=== PATIENT | female | born 1955 | race Caucasian/White ===

== ENCOUNTER 2025-01-13 18:08 | Observation (INO) | payer MEDICARE ==
[2025-01-13 19:39] LABS: BASOPHIL % 0.9 % (0.1-1.2); Basophil (Absolute #) 0.07 x10^3/uL (0.01-0.08); Eosinophil (Absolute #) 0.21 x10^3/uL (0.04-0.36); Hematocrit 18.2 % (34.1-44.9); IMMATURE GRAN # 0.02 x10^3u/L (0.001-0.031); IMMATURE GRAN % 0.3 % (0.001-0.429); Lymphocyte (Absolute #) 1.46 x10^3/uL (1.18-3.74); Mean Corpuscular Hemoglobin 23.5 pg (25.6-32.2); Mean Corpuscular Hgb Concent. 28.6 g/dL (32.2-35.5); Monocyte (Absolute #) 0.72 x10^3/uL (0.24-0.86); NUCLEATED RBC # 0.04 x10^3u/L (0.00-0.012); NUCLEATED RBC % 0.5 % (0.00-0.2); Platelet Count 411 x10^3/uL (182-369); Red Blood Count 2.21 x10^6/uL (3.93-5.22); White Blood Count 7.7 x10^3/uL (3.98-10.04)
[2025-01-13 19:52] LABS: Hemoglobin 5.2 g/dL (11.2-15.7)
[2025-01-13 19:56] LABS: Calcium 9.1 mg/dL (8.4-10.2); Carbon Dioxide 25.0 mmol/L (22-30); Creatinine 1 1.66 mg/dL (0.52-1.04); EST GLOMERULAR FILTRATION RATE 33.4 ML/MIN; Glucose 105.0 mg/dL (74-106); Potassium 4.1 mmol/L (3.5-5.1); SGOT/AST 26.0 U/L (14-36); SGPT/ALT 26.0 U/L (0-35); Total Protein 6.5 g/dL (6.3-8.2)
--- NOTE | 2025-01-13 20:20 | ERPHSYRPT ---
- History of Present Illness Source: patient, rn plastic surgery Patient Subjective Stated Complaint: pt c/o of arm and leg achiness, feeling like she is going to pass out Triage Nursing Assessment: Pt brought to the ER by her father, vitals wnl, rates pain as 6/10, pulses normal, skin n/w/d, denies SOB, denies chest pain, doesn't appear to be in any distress Physician History: Patient is feeling fatigued. She said she feels like she is anemic. This has happened before. She had it worked up a while back in [place]. She said that "they did not find what was wrong". She said that she is just been getting progressively fatigued cannotDo what she used to do. There is been no acute blood loss that she is seen. She has had no chest pain. But she has had some shortness of breath.This is with exertion. She does not have any fever or chills or nausea vomiting or other systemic or toxic symptoms. Allergies/Adverse Reactions: No Known Drug Allergies Allergy (Verified 01/13/25 18:30) Home Medications: Amiodarone HCl 200 mg PO DAILY 01/13/25 [History] Amlodipine Besylate 5 mg [Norvasc 5 mg] 5 mg PO DAILY 01/13/25 [History] Furosemide 20 mg [Lasix 20 mg] 20 mg PO DAILY 01/13/25 [History] Metoprolol Tartrate 50 mg [Lopressor 50 MG] 50 mg PO BID 01/13/25 [History] PANTOPRAZOLE 40 mg Tablet [Protonix 40MG Tablet] 40 mg PO QAM 01/13/25 [History] Potassium Chloride 10 meq PO BID 01/13/25 [History] Rivaroxaban [Xarelto] 20 mg PO DAILY 01/13/25 [History] Sucralfate 1 gm [Carafate 1 GM] 1 g PO DAILY 01/13/25 [History] Hx Influenza Vaccination/Date Given: Yes Hx Pneumococcal Vaccination/Date Given: Yes Travel Risk - International Travel Have you traveled outside of the country in past 3 weeks: No - Emerging Infectious Disease Are you exhibiting symptoms associated with any current EIDs: No - Review of Systems Constitutional: Fatigue Eyes: No Symptoms Ears, Nose, & Throat: No Symptoms Respiratory: No Symptoms, Dyspnea on Exertion (BENNETT) Cardiac: No Symptoms Abdominal/Gastrointestinal: No Symptoms, No Hematemesis, No Hematochezia, No Melena, No Dysphagia Genitourinary Symptoms: No Symptoms Musculoskeletal: No Symptoms Skin: No Symptoms Neurological: No Symptoms Psychological: No Symptoms All Other Systems: Reviewed and Negative - Past Medical History Pertinent Past Medical History: Yes Cardiac History: Arrhythmia, High Cholesterol, Hypertension Other Medical History: hx of blood transfusion - Past Surgical History Past Surgical History: Yes Gastrointestinal: Cholecystectomy Female Surgical History: Section, Tubal Ligation - Social History Smoking Status: Never smoker Exposure to second hand smoke: No Drug Use: none - Social Determinants of Health Will the patient participate in the screening: Yes Do you worry about a steady place to live?: No Do you have any problems with any of the following?: No known problems In the past 12 months,have you had to go without utilities?: No Transportation Issues: No Has anyone in your support network made you feel unsafe?: No Have you or anyone in your house had to go w/o enough food: No - Nursing Vital Signs Nursing Vital Signs: Initial Vital Signs Temperature 97.2 F 01/13/25 18:22 Pulse Rate 65 01/13/25 18:22 Blood Pressure 123/28 01/13/25 18:22 O2 Sat by Pulse Oximetry 98 01/13/25 18:22 Pain Scale Pain Intensity 6 - Physical Exam General Appearance: no apparent distress, other (Pale) Eyes, Ears, Nose, Throat Exam: normal ENT inspection, No TMs normal, No pharynx normal Neck Exam: normal inspection, non-tender, supple Cardiovascular/Respiratory Exam: chest non-tender, normal breath sounds, regular rate/rhythm Gastrointestinal/Abdominal Exam: non-tender, soft Back Exam: normal inspection, normal range of motion Legs Exam: bilateral leg: non-tender, normal inspection, normal range of motion Knees Exam: bilateral knee: non-tender, normal inspection, normal range of motion Neuro/Tendon Exam: normal sensation, normal motor functions, normal tendon functions Mental Status Exam: alert, oriented x 3 Skin Exam: normal color, warm, dry SpO2: 97 - Course Nursing assessment & vital signs reviewed: Yes Ordered Tests: Active Orders 24 hr Category Date Time Status CBC W DIFF Stat Lab 01/13/25 19:30 Completed CMP Stat Lab 01/13/25 19:30 Completed MAG [MAGNESIUM] Stat Lab 01/13/25 19:30 Completed Lab/Rad Data: Laboratory Result Diagrams 01/13/25 19:30 01/13/25 19:30 Laboratory Results 01/13/25 01/13/25 Range/Units 19:30 19:30 WBC 7.7 (3.98-10.04) x10^3/uL RBC 2.21 L (3.93-5.22) x10^6/uL Hgb 5.2 L* (11.2-15.7) g/dL Hct 18.2 L (34.1-44.9) % MCV 82.4 (79.4-94.8) fL MCH 23.5 L (25.6-32.2) pg MCHC 28.6 L (32.2-35.5) g/dL RDW 16.8 H (11.7-14.4) % Plt Count 411 H (182-369) x10^3/uL MPV 9.9 (9.4-12.3) fL Gran % 67.9 (34.0-71.1) % Immature Gran % (Auto) 0.3 (0.001-0.429) % Nucleat RBC Rel Count 0.5 H (0.00-0.2) % Eos # (Auto) 0.21 (0.04-0.36) x10^3/uL Immature Gran # (Auto) 0.02 (0.001-0.031) x10^3u/L Absolute Lymphs (auto) 1.46 (1.18-3.74) x10^3/uL Absolute Monos (auto) 0.72 (0.24-0.86) x10^3/uL Absolute Nucleated RBC 0.04 H (0.00-0.012) x10^3u/L Lymphocytes % 18.9 L (19.3-51.7) % Monocytes % 9.3 (4.7-12.5) % Eosinophils % 2.7 (0.7-5.8) % Basophils % 0.9 (0.1-1.2) % Absolute Granulocytes 5.23 (1.56-6.13) x10^3/uL Basophils # 0.07 (0.01-0.08) x10^3/uL Sodium 136 (135-145) mmol/L Potassium 4.1 (3.5-5.1) mmol/L Chloride 103 (98-107) mmol/L Carbon Dioxide 25 (22-30) mmol/L Anion Gap 12.0 (5-15) MEQ/L BUN 19 H (7-17) mg/dL Creatinine 1.66 H (0.52-1.04) mg/dL Estimated GFR 33.4 ML/MIN Glucose 105 (74-106) mg/dL Calcium 9.1 (8.4-10.2) mg/dL Magnesium 2.1 (1.6-2.3) mg/dL Total Bilirubin 0.30 (0.2-1.3) mg/dL AST 26 (14-36) U/L ALT 26 (0-35) U/L Alkaline Phosphatase 57 (38-126) U/L Serum Total Protein 6.5 (6.3-8.2) g/dL Albumin 4.1 (3.5-5.0) g/dL - Progress Progress: unchanged Progress Note: Patient was stable throughout stay. Her vital signs were good she was just a little hypotensive. Her lab work came back it showed a normocytic hypochromic anemiaThere is a high RDW. I spoke with the hospitalist he said that they will workup the anemia I will go ahead and put her in and get a couple units of red cells ordered. 01/13/25 20:25 - Departure Departure Disposition: Observation Clinical Impression: Anemia Condition: Stable Critical Care Time: No Referrals: JAY BARTON MD [Primary Care Provider, [facility]] - Follow up/PCP as directed
[2025-01-13 20:42] LABS: RETICULOCYTE % 3.7 % (0.5-1.7); RETICULOCYTE HEMOGLOBIN 16.7 pg (28-36.6)
[2025-01-13] MEDS: TYLENOL 325 MG PO ONE (21:15)
[2025-01-13] MEDS: Klor Con PO SCH (21:15)
[2025-01-13 21:16] LABS: Iron 20 ug/dL (37-170); TIBC 484 ug/dL (265-462)
[2025-01-13] MEDS: Lopressor 50 MG PO SCH (21:16)
[2025-01-13] MEDS ORDERED: BENADRYL 25 MG CAPSULE ONE (21:38)
--- NOTE | 2025-01-13 22:01 | PCM.HP ---
History of Present Illness - Chief Complaint Chief Complaint: fatigue Date: 01/13/25 History of Present Illness: 69-year-old with a history of A-fib on Xarelto, hypertension, CHF unknown etiology, and GERD, who presents with fatigue. Patient notes that she has had progressive feelings of weakness for the past few weeks, progressing now to the point where she feels that she might even pass out after only walking a few steps. Denies any chest pain, dyspnea, nausea, abdominal pain. Denies any melena, hematochezia, hematemesis, or hematuria. Not on any particular dietary restrictions. She notes that a few years ago, she had similar symptoms and required a blood transfusion at that time. She never found a source of any bleeding, despite receiving an upper and lower endoscopy. Her last colonoscopy was a few years ago at that time. Most recently she has had a Cologuard in the last few months that was negative. She has been on Xarelto for some time with no issues. She has a history of severe GERD requiring PPI and Carafate, but denies any history of gastric ulcers or bleeding from the stomach. - Review of Systems All Other Systems: Reviewed and Negative (Except as per HPI) Medications & Allergies Home Medications: Home Medication List Amiodarone HCl 200 mg PO DAILY 01/13/25 [History Confirmed 01/13/25] Amlodipine Besylate 5 mg [Norvasc 5 mg] 5 mg PO DAILY 01/13/25 [History Confirmed 01/13/25] Furosemide 20 mg [Lasix 20 mg] 20 mg PO DAILY 01/13/25 [History Confirmed 01/13/25] Metoprolol Tartrate 50 mg [Lopressor 50 MG] 50 mg PO BID 01/13/25 [History Confirmed 01/13/25] PANTOPRAZOLE 40 mg Tablet [Protonix 40MG Tablet] 40 mg PO QAM 01/13/25 [History Confirmed 01/13/25] Potassium Chloride 10 meq PO BID 01/13/25 [History Confirmed 01/13/25] Rivaroxaban [Xarelto] 20 mg PO DAILY 01/13/25 [History Confirmed 01/13/25] Sucralfate 1 gm [Carafate 1 GM] 1 g PO DAILY 01/13/25 [History Confirmed 01/13/25] Allergies/Adverse Reactions: Allergies Allergy/AdvReac Type Severity Reaction Status Date / Time No Known Drug Allergies Allergy Verified 01/13/25 18:30 - Past Medical History Past Medical History: Yes Neurological History: No Pertinent History ENT History: Cataracts Cardiac History: Arrhythmia, High Cholesterol, Hypertension Respiratory History: No Pertinent History Endocrine Medical History: No Pertinent History Musculoskelatal History: No Pertinent History GI Medical History: No Pertinent History History: Renal Disease Pyscho-Social History: No Pertinent History Reproductive Disorders: No Pertinent History Comment: hx of blood transfusion - Past Surgical History Past Surgical History: Yes Neuro Surgical History: No Pertinent History Cardiac History: No Pertinent History Respiratory Surgery: No Pertinent History GI Surgical History: Cholecystectomy Genitourinary Surgical Hx: No Pertinent History Musculskeletal Surgical Hx: No Pertinent History Female Surgical History: Section, Tubal Ligation Significant Family History: cancer (Mother with skin cancer, brother with colon cancer, sister with breast cancer) - Social History Smoking Status: Former smoker Exposure to second hand smoke: No Alcohol: None Drug Use: none - Social Determinants of Health Will the patient participate in the screening: Yes Do you worry about a steady place to live?: No Do you have any problems with any of the following?: No known problems In the past 12 months,have you had to go without utilities?: No Have you or anyone in your house had to go without enough: No Transportation Issues: No Has anyone in your support network made you feel unsafe?: No Does the patient want assistance with any of the above?: No - Physical Exam Vital Signs: Vital Signs - 24 hr Temp Pulse Resp BP BP Pulse Ox 01/13/25 21:00 98.0 F 75 20 138/87 96 01/13/25 20:54 97.2 F 64 138/87 97 01/13/25 20:26 97 01/13/25 19:34 64 17 118/57 99 01/13/25 19:01 62 16 111/47 97 01/13/25 18:31 64 16 120/40 98 01/13/25 18:22 97.2 F 65 123/28 98 Physical Exam GEN: Sitting up in bed in no acute distress. HENT: Normocephalic, atraumatic. Moist mucous membranes. EYES: Normal inspection, anicteric sclera, extraocular movements intact. NECK: Supple, full range of motion CV: Regular rate and rhythm, no murmurs, no gallops. No JVD or edema. PULM: Clear to auscultation bilaterally, no work of breathing. On room air. ABD: Nondistended, nontender. MSK: No joint effusions, full range of motion SKIN: No rashes, normal color. NEURO: Face symmetric, no focal motor or sensory deficits. PSYCH: Alert, oriented x 3 Results - Labs Lab/Micro Results: Lab Results-Last 24 Hours 01/13/25 01/13/25 01/13/25 Range/Units 19:30 19:30 19:30 WBC 7.7 (3.98-10.04) x10^3/uL RBC 2.21 L (3.93-5.22) x10^6/uL Hgb 5.2 L* (11.2-15.7) g/dL Hct 18.2 L (34.1-44.9) % MCV 82.4 (79.4-94.8) fL MCH 23.5 L (25.6-32.2) pg MCHC 28.6 L (32.2-35.5) g/dL RDW 16.8 H (11.7-14.4) % Plt Count 411 H (182-369) x10^3/uL MPV 9.9 (9.4-12.3) fL Gran % 67.9 (34.0-71.1) % Immature Gran % (Auto) 0.3 (0.001-0.429) % Reticulocyte % (Auto) 3.7 H (0.5-1.7) % Nucleat RBC Rel Count 0.5 H (0.00-0.2) % Eos # (Auto) 0.21 (0.04-0.36) x10^3/uL Immature Gran # (Auto) 0.02 (0.001-0.031) x10^3u/L Absolute Lymphs (auto) 1.46 (1.18-3.74) x10^3/uL Absolute Monos (auto) 0.72 (0.24-0.86) x10^3/uL Absolute Nucleated RBC 0.04 H (0.00-0.012) x10^3u/L Lymphocytes % 18.9 L (19.3-51.7) % Monocytes % 9.3 (4.7-12.5) % Eosinophils % 2.7 (0.7-5.8) % Basophils % 0.9 (0.1-1.2) % Absolute Granulocytes 5.23 (1.56-6.13) x10^3/uL Basophils # 0.07 (0.01-0.08) x10^3/uL Peripher Smr Path Cons Pending Absolute Retic 0.0817 H (0.0164-0.0776) x10^6/uL Retic Hgb Content 16.7 L (28-36.6) pg Sodium 136 (135-145) mmol/L Potassium 4.1 (3.5-5.1) mmol/L Chloride 103 (98-107) mmol/L Carbon Dioxide 25 (22-30) mmol/L Anion Gap 12.0 (5-15) MEQ/L BUN 19 H (7-17) mg/dL Creatinine 1.66 H (0.52-1.04) mg/dL Estimated GFR 33.4 ML/MIN Glucose 105 (74-106) mg/dL Calcium 9.1 (8.4-10.2) mg/dL Magnesium 2.1 (1.6-2.3) mg/dL Iron (37-170) ug/dL TIBC (265-462) ug/dL Iron Saturation (20-39) % Total Bilirubin 0.30 (0.2-1.3) mg/dL AST 26 (14-36) U/L ALT 26 (0-35) U/L Alkaline Phosphatase 57 (38-126) U/L Serum Total Protein 6.5 (6.3-8.2) g/dL Albumin 4.1 (3.5-5.0) g/dL 01/13/25 Range/Units 19:30 WBC (3.98-10.04) x10^3/uL RBC (3.93-5.22) x10^6/uL Hgb (11.2-15.7) g/dL Hct (34.1-44.9) % MCV (79.4-94.8) fL MCH (25.6-32.2) pg MCHC (32.2-35.5) g/dL RDW (11.7-14.4) % Plt Count (182-369) x10^3/uL MPV (9.4-12.3) fL Gran % (34.0-71.1) % Immature Gran % (Auto) (0.001-0.429) % Reticulocyte % (Auto) (0.5-1.7) % Nucleat RBC Rel Count (0.00-0.2) % Eos # (Auto) (0.04-0.36) x10^3/uL Immature Gran # (Auto) (0.001-0.031) x10^3u/L Absolute Lymphs (auto) (1.18-3.74) x10^3/uL Absolute Monos (auto) (0.24-0.86) x10^3/uL Absolute Nucleated RBC (0.00-0.012) x10^3u/L Lymphocytes % (19.3-51.7) % Monocytes % (4.7-12.5) % Eosinophils % (0.7-5.8) % Basophils % (0.1-1.2) % Absolute Granulocytes (1.56-6.13) x10^3/uL Basophils # (0.01-0.08) x10^3/uL Peripher Smr Path Cons Absolute Retic (0.0164-0.0776) x10^6/uL Retic Hgb Content (28-36.6) pg Sodium (135-145) mmol/L Potassium (3.5-5.1) mmol/L Chloride (98-107) mmol/L Carbon Dioxide (22-30) mmol/L Anion Gap (5-15) MEQ/L BUN (7-17) mg/dL Creatinine (0.52-1.04) mg/dL Estimated GFR ML/MIN Glucose (74-106) mg/dL Calcium (8.4-10.2) mg/dL Magnesium (1.6-2.3) mg/dL Iron 20 L (37-170) ug/dL TIBC 484 H (265-462) ug/dL Iron Saturation 4 L (20-39) % Total Bilirubin (0.2-1.3) mg/dL AST (14-36) U/L ALT (0-35) U/L Alkaline Phosphatase (38-126) U/L Serum Total Protein (6.3-8.2) g/dL Albumin (3.5-5.0) g/dL Assessment/Plan (1) Anemia Current Visit: Yes Status: Acute Assessment & Plan: 69-year-old woman with history of A-fib on Xarelto, CHF, GERD, hypertension, here with symptomatic anemia. ## Anemia symptomatic, with hemoglobin down to 5.2 now. Patient is hemodynamically stable, no evidence of any active bleeding. Anemia labs were ordered prior to transfusion, and some of already resulted. Her reticulocyte production index is only 0.7, indicating inadequate response. Her iron correction is only 4%, suggesting severe iron deficiency, although tentatively her ferritin is still pending. Patient has CKD, but it is not severe enough to where you would expect significant decrease in EPO production, and that would not explain her severe iron deficiency. Also pending labs for hemolysis, and blood smear. However, given the low reticulocyte count, hemolysis is less likely. Underlying etiology for the iron deficiency however, is indeterminant. She has history of prior workup done in [place] when she previously presented with anemia. It has been a few years as her last colonoscopy however. Transfused 2 units PRBCs Consent obtained in ED Repeat H&H after transfusion Continue to transfuse at that point to maintain hemoglobin greater than 7 Follow-up pending anemia labs: Ferritin, haptoglobin, LDH, B12, folate and peripheral blood smear If no other cause besides iron deficiency anemia, patient will need repeat upper and lower endoscopy, and will likely need IV iron infusion to help replenish stores. Both of these can be set up as an outpatient once hemoglobin has improved enough to relieve symptoms. ## A-fib paroxysmal, currently in sinus rhythm. Continue home amiodarone 200 mg daily, Lopressor 50 mg BID Hold home Xarelto for now, but if no evidence of any active severe bleeding, and hemoglobin responds appropriate to transfusion, can likely resume ## CKD stage III patient's baseline creatinine is unknown, but patient states he has a known history of renal impairment. Her creatinine is roughly in line with where it was last month. Repeat BMP in the morning ## History of CHF presumably diastolic, as patient is not on GDMT. Currently euvolemic. Getting dose of IV Lasix after the first unit of blood Resume home Lasix 20 mg daily Can defer to outpatient provider, but patient would likely benefit from SGLT2 inhibitor and MRA given need for diuretic ## Hypertension blood pressure currently controlled. Resume home Norvasc 5 mg, Lopressor 50 mg BID ## GERD the patient denies any history of bleeding ulcers. Resume home Carafate and Protonix CODE STATUS: Full code Prophylaxis: Holding home Xarelto, but will resume if no evidence of active bleeding. No need for chemoprophylaxis during short observation stay Diet: Regular Dispo: Place in observation, expect discharge to home with outpatient follow-up with PCP to arrange iron infusions and likely GI for upper and lower endoscopy. Entirety of encounter took place via live audio/video telemedicine device, with remote physician and patient in hospital, with the assistance of bedside nurse. Josep Cornelius MD Telemedicine Hospitalist Access Tele[employer] Code(s): D64.9 - ANEMIA, UNSPECIFIED Telemedicine Encounter - Telemedicine Encounter Telemedicine Encounter: "The entirety of this encounter was performed via Telemedicine" This visit was performed using real-time audio and video connection between my location and thepatients locationwith the assistance of a surrogateat the patients location. Written or verbal consent was obtained from the patient/guardian to perform this visit [facility] heart[facility]icine technology. Any patient questions regarding the telemedicine interaction were answered.
[2025-01-13 22:18] LABS: Ferritin 4.04 ng/mL (11.1-264); LDH-LACTATE DEHYDROGENASE 179 U/L (120-246)
[2025-01-14] MEDS: DESYREL 50 MG PO SCH (02:26)
[2025-01-14] MEDS ORDERED: DESYREL 50 MG ONE (02:26)
[2025-01-14 04:56] LABS: Calcium 8.9 mg/dL (8.4-10.2); Carbon Dioxide 26.0 mmol/L (22-30); Creatinine 1 1.4 mg/dL (0.52-1.04); EST GLOMERULAR FILTRATION RATE 41.0 ML/MIN; Glucose 85.0 mg/dL (74-106); Potassium 3.9 mmol/L (3.5-5.1)
[2025-01-14] MEDS: Lasix 20 MG/2 ML IV ONE ×2 (05:01→22:23)
[2025-01-14 05:41] LABS: BASOPHIL % 0.6 % (0.1-1.2); Basophil (Absolute #) 0.04 x10^3/uL (0.01-0.08); Eosinophil (Absolute #) 0.31 x10^3/uL (0.04-0.36); Hematocrit 16.5 % (34.1-44.9); IMMATURE GRAN # 0.02 x10^3u/L (0.001-0.031); IMMATURE GRAN % 0.3 % (0.001-0.429); Lymphocyte (Absolute #) 1.86 x10^3/uL (1.18-3.74); Mean Corpuscular Hemoglobin 23.6 pg (25.6-32.2); Mean Corpuscular Hgb Concent. 29.1 g/dL (32.2-35.5); Monocyte (Absolute #) 0.69 x10^3/uL (0.24-0.86); NUCLEATED RBC # 0.03 x10^3u/L (0.00-0.012); NUCLEATED RBC % 0.4 % (0.00-0.2); Platelet Count 376 x10^3/uL (182-369); Red Blood Count 2.03 x10^6/uL (3.93-5.22); White Blood Count 7.2 x10^3/uL (3.98-10.04)
[2025-01-14 05:46] LABS: Hemoglobin 4.8 g/dL (11.2-15.7)
[2025-01-14] MEDS: Carafate 1 GM PO SCH (07:48)
[2025-01-14] MEDS: Cordarone 200 MG PO SCH (09:31)
[2025-01-14] MEDS: Protonix 40MG Tablet PO SCH (09:31)
[2025-01-14] MEDS: NORVASC 5 MG PO SCH (09:32)
[2025-01-14] MEDS: LASIX 20 MG PO SCH (09:32)
--- NOTE | 2025-01-14 10:00 | PCM.NOTE ---
Date and Time: 01/14/25 0951 Subjective Assessment: Ms. Alcazar is a 69 year old female with pmhx of AFIB (on xarelto), HTN, CHF, CKD, GERD who presented 01/13/25 with progressive fatigue and weakness. She reported that over the past several weeks, she has experienced increasing difficulty with exertion, now to the point of near-syncope after walking only a few steps. She denied chest pain, dyspnea, abdominal pain, nausea, melena, hematochezia, hematemesis, or hematuria. Notably, she recalled a similar episode several years ago requiring blood transfusion, during which an upper and lower endoscopy were reportedly unrevealing. Her most recent Cologuard was negative, and her last colonoscopy was performed a few years ago. She has been maintained on Xarelto without previous bleeding complications. She also has severe GERD, managed with PPI and Carafate, but denies any known history of gastric ulcers or prior upper GI bleeding. On presentation, her hemoglobin was found to be critically low at 5.2 with repeat at 4.8, prompting transfusion of two units of PRBCs. Smear detected antibodies delaying transfusion. The patients labs are consistent with severe iron deficiency anemia, evidenced by a ferritin of 4.04, iron saturation of 4%, and a low reticulocyte hemoglobin content (CHr) of 16.7 pg. The absolute reticulocyte count of 0.0817 is inappropriately low given the degree of anemia. Vitamin B12 and folate levels are within normal limits, ruling out megaloblastic anemia. Overall, findings strongly suggest iron deficiency from chronic occult blood loss, likely gastrointestinal in origin. Her chronic kidney disease is not severe enough to account for this degree of erythropoietin suppression, and there are no current signs pointing toward hemolysis or acute renal decompensation. The underlying cause of her iron deficiency remains unclear, and General Surgery has been consulted for inpatient endoscopic evaluation in the absence of in-house gastroenterology. 01/14/25: Met with patient bedside. She endorses continued fatigue and weakness with shortness of breath on exertion. Transfusion delayed secondary to positive antibody screen requiring extended crossmatch. Awaiting identification and compatible unit preparation. Patient is being monitored and will be transfused once safe units are available. Surgery has been consulted for evaluation of possible GI bleed. Will start ferrous sulfate. Occult stools pending. - Review of Systems Constitutional: Fatigue, Weakness Eyes: No Symptoms Ears, Nose, & Throat: No Symptoms Respiratory: Short Of Breath Cardiac: No Symptoms Abdominal/Gastrointestinal: No Symptoms Genitourinary Symptoms: No Symptoms Musculoskeletal: No Symptoms Skin: No Symptoms Neurological: No Symptoms Psychological: No Symptoms Endocrine: No Symptoms Hematologic/Lymphatic: No Symptoms Immunological/Allergic: No Symptoms Objective Exam General Appearance: no apparent distress Neurologic Exam: alert, oriented x 3, cooperative Skin Exam: pale Eye Exam: PERRL Ears, Nose, Throat Exam: normal ENT inspection Neck Exam: normal inspection Respiratory Exam: normal breath sounds, lungs clear Cardiovascular Exam: regular rate/rhythm, normal heart sounds Gastrointestinal/Abdomen Exam: soft, normal bowel sounds Extremity Exam: normal inspection Back Exam: normal inspection Pelvic Exam: deferred Rectal Exam: deferred Objective Data Vital Signs: Vital Signs - 24 hr Temp Pulse Resp BP BP Pulse Ox 01/14/25 07:00 98.4 F 62 16 103/50 94 L 01/14/25 04:00 98.3 F 69 18 122/58 96 01/14/25 00:00 97.9 F 69 16 104/48 95 01/13/25 21:00 98.0 F 75 20 138/87 96 01/13/25 20:54 97.2 F 64 138/87 97 01/13/25 20:26 97 01/13/25 19:34 64 17 118/57 99 01/13/25 19:01 62 16 111/47 97 01/13/25 18:31 64 16 120/40 98 01/13/25 18:22 97.2 F 65 123/28 98 Pain Assessment - Last Documented Pain Intensity 0 Pain Scale Used 0-10 Pain Scale Intake and Output: Intake & Output 01/11/25 01/12/25 01/13/25 01/14/25 11:59 11:59 11:59 11:59 Intake Total 480 Balance 480 Weight 84.64 kg Lab Results: Lab Results-Last 24 Hours 01/13/25 01/13/25 01/13/25 Range/Units 19:30 19:30 19:30 WBC 7.7 (3.98-10.04) x10^3/uL RBC 2.21 L (3.93-5.22) x10^6/uL Hgb 5.2 L* (11.2-15.7) g/dL Hct 18.2 L (34.1-44.9) % MCV 82.4 (79.4-94.8) fL MCH 23.5 L (25.6-32.2) pg MCHC 28.6 L (32.2-35.5) g/dL RDW 16.8 H (11.7-14.4) % Plt Count 411 H (182-369) x10^3/uL MPV 9.9 (9.4-12.3) fL Gran % 67.9 (34.0-71.1) % Immature Gran % (Auto) 0.3 (0.001-0.429) % Reticulocyte % (Auto) 3.7 H (0.5-1.7) % Nucleat RBC Rel Count 0.5 H (0.00-0.2) % Eos # (Auto) 0.21 (0.04-0.36) x10^3/uL Immature Gran # (Auto) 0.02 (0.001-0.031) x10^3u/L Absolute Lymphs (auto) 1.46 (1.18-3.74) x10^3/uL Absolute Monos (auto) 0.72 (0.24-0.86) x10^3/uL Absolute Nucleated RBC 0.04 H (0.00-0.012) x10^3u/L Lymphocytes % 18.9 L (19.3-51.7) % Monocytes % 9.3 (4.7-12.5) % Eosinophils % 2.7 (0.7-5.8) % Basophils % 0.9 (0.1-1.2) % Absolute Granulocytes 5.23 (1.56-6.13) x10^3/uL Basophils # 0.07 (0.01-0.08) x10^3/uL Peripher Smr Path Cons Pending Absolute Retic 0.0817 H (0.0164-0.0776) x10^6/uL Retic Hgb Content 16.7 L (28-36.6) pg Sodium 136 (135-145) mmol/L Potassium 4.1 (3.5-5.1) mmol/L Chloride 103 (98-107) mmol/L Carbon Dioxide 25 (22-30) mmol/L Anion Gap 12.0 (5-15) MEQ/L BUN 19 H (7-17) mg/dL Creatinine 1.66 H (0.52-1.04) mg/dL Estimated GFR 33.4 ML/MIN Glucose 105 (74-106) mg/dL Calcium 9.1 (8.4-10.2) mg/dL Magnesium 2.1 (1.6-2.3) mg/dL Iron (37-170) ug/dL TIBC (265-462) ug/dL Iron Saturation (20-39) % Ferritin (11.1-264) ng/mL Total Bilirubin 0.30 (0.2-1.3) mg/dL AST 26 (14-36) U/L ALT 26 (0-35) U/L Alkaline Phosphatase 57 (38-126) U/L Lactate Dehydrogenase (120-246) U/L Serum Total Protein 6.5 (6.3-8.2) g/dL Albumin 4.1 (3.5-5.0) g/dL Vitamin B12 (239-931) pg/mL Folic Acid (2.76 - >20) ng/mL 01/13/25 01/13/25 01/14/25 Range/Units 19:30 19:30 04:00 WBC 7.2 (3.98-10.04) x10^3/uL RBC 2.03 L (3.93-5.22) x10^6/uL Hgb 4.8 L* (11.2-15.7) g/dL Hct 16.5 L (34.1-44.9) % MCV 81.3 (79.4-94.8) fL MCH 23.6 L (25.6-32.2) pg MCHC 29.1 L (32.2-35.5) g/dL RDW 16.9 H (11.7-14.4) % Plt Count 376 H (182-369) x10^3/uL MPV 10.7 (9.4-12.3) fL Gran % 59.1 (34.0-71.1) % Immature Gran % (Auto) 0.3 (0.001-0.429) % Reticulocyte % (Auto) (0.5-1.7) % Nucleat RBC Rel Count 0.4 H (0.00-0.2) % Eos # (Auto) 0.31 (0.04-0.36) x10^3/uL Immature Gran # (Auto) 0.02 (0.001-0.031) x10^3u/L Absolute Lymphs (auto) 1.86 (1.18-3.74) x10^3/uL Absolute Monos (auto) 0.69 (0.24-0.86) x10^3/uL Absolute Nucleated RBC 0.03 H (0.00-0.012) x10^3u/L Lymphocytes % 26.0 (19.3-51.7) % Monocytes % 9.7 (4.7-12.5) % Eosinophils % 4.3 (0.7-5.8) % Basophils % 0.6 (0.1-1.2) % Absolute Granulocytes 4.23 (1.56-6.13) x10^3/uL Basophils # 0.04 (0.01-0.08) x10^3/uL Peripher Smr Path Cons Absolute Retic (0.0164-0.0776) x10^6/uL Retic Hgb Content (28-36.6) pg Sodium (135-145) mmol/L Potassium (3.5-5.1) mmol/L Chloride (98-107) mmol/L Carbon Dioxide (22-30) mmol/L Anion Gap (5-15) MEQ/L BUN (7-17) mg/dL Creatinine (0.52-1.04) mg/dL Estimated GFR ML/MIN Glucose (74-106) mg/dL Calcium (8.4-10.2) mg/dL Magnesium (1.6-2.3) mg/dL Iron 20 L (37-170) ug/dL TIBC 484 H (265-462) ug/dL Iron Saturation 4 L (20-39) % Ferritin 4.04 L (11.1-264) ng/mL Total Bilirubin (0.2-1.3) mg/dL AST (14-36) U/L ALT (0-35) U/L Alkaline Phosphatase (38-126) U/L Lactate Dehydrogenase 179 (120-246) U/L Serum Total Protein (6.3-8.2) g/dL Albumin (3.5-5.0) g/dL Vitamin B12 474 (239-931) pg/mL Folic Acid > 20.0 (2.76 - >20) ng/mL 01/14/25 Range/Units 04:19 WBC (3.98-10.04) x10^3/uL RBC (3.93-5.22) x10^6/uL Hgb (11.2-15.7) g/dL Hct (34.1-44.9) % MCV (79.4-94.8) fL MCH (25.6-32.2) pg MCHC (32.2-35.5) g/dL RDW (11.7-14.4) % Plt Count (182-369) x10^3/uL MPV (9.4-12.3) fL Gran % (34.0-71.1) % Immature Gran % (Auto) (0.001-0.429) % Reticulocyte % (Auto) (0.5-1.7) % Nucleat RBC Rel Count (0.00-0.2) % Eos # (Auto) (0.04-0.36) x10^3/uL Immature Gran # (Auto) (0.001-0.031) x10^3u/L Absolute Lymphs (auto) (1.18-3.74) x10^3/uL Absolute Monos (auto) (0.24-0.86) x10^3/uL Absolute Nucleated RBC (0.00-0.012) x10^3u/L Lymphocytes % (19.3-51.7) % Monocytes % (4.7-12.5) % Eosinophils % (0.7-5.8) % Basophils % (0.1-1.2) % Absolute Granulocytes (1.56-6.13) x10^3/uL Basophils # (0.01-0.08) x10^3/uL Peripher Smr Path Cons Absolute Retic (0.0164-0.0776) x10^6/uL Retic Hgb Content (28-36.6) pg Sodium 137 (135-145) mmol/L Potassium 3.9 (3.5-5.1) mmol/L Chloride 107 (98-107) mmol/L Carbon Dioxide 26 (22-30) mmol/L Anion Gap 8.3 (5-15) MEQ/L BUN 19 H (7-17) mg/dL Creatinine 1.40 H (0.52-1.04) mg/dL Estimated GFR 41.0 ML/MIN Glucose 85 (74-106) mg/dL Calcium 8.9 (8.4-10.2) mg/dL Magnesium (1.6-2.3) mg/dL Iron (37-170) ug/dL TIBC (265-462) ug/dL Iron Saturation (20-39) % Ferritin (11.1-264) ng/mL Total Bilirubin (0.2-1.3) mg/dL AST (14-36) U/L ALT (0-35) U/L Alkaline Phosphatase (38-126) U/L Lactate Dehydrogenase (120-246) U/L Serum Total Protein (6.3-8.2) g/dL Albumin (3.5-5.0) g/dL Vitamin B12 (239-931) pg/mL Folic Acid (2.76 - >20) ng/mL Medications: Medications Generic Name Dose Route Start Last Admin Trade Name Freq PRN Reason Stop Dose Admin Acetaminophen 650 mg 01/13/25 20:44 Acetaminophen 325 Mg Tablet PO 02/12/25 20:43 Q6H PRN PRN PAIN AND/OR FEVER Amiodarone HCl 200 mg 01/14/25 10:00 01/14/25 09:31 Amiodarone Hcl 200 Mg Tab PO 02/13/25 09:59 200 mg DAILY EFREN Administration Amlodipine Besylate 5 mg 01/14/25 10:00 01/14/25 09:32 Amlodipine Besylate 5 Mg Tablet PO 02/13/25 09:59 5 mg DAILY EFREN Administration Furosemide 20 mg 01/14/25 10:00 01/14/25 09:32 Furosemide 20 Mg Tablet PO 02/13/25 09:59 20 mg DAILY EFREN Administration Metoprolol Tartrate 50 mg 01/13/25 22:00 01/14/25 09:31 Metoprolol Tartrate 50 Mg Tablet PO 02/12/25 21:59 50 mg BID EFREN Administration Pantoprazole Sodium 40 mg 01/14/25 10:00 Pantoprazole 40 Mg Vial IV 02/13/25 09:59 BID EFREN Potassium Chloride 10 meq 01/13/25 22:00 01/14/25 09:31 Potassium Chloride Tab 10 Meq Tab PO 02/12/25 21:59 10 meq BID EFREN Administration Sucralfate 1 g 01/14/25 07:30 01/14/25 07:48 Sucralfate 1 G Tablet PO 02/13/25 07:29 1 g DAILY@0730 EFREN Administration Trazodone HCl 50 mg 01/14/25 22:00 01/14/25 02:26 Trazodone Hcl 50 Mg Tablet PO 02/13/25 21:59 50 mg HS EFREN Administration Discontinued Medications Generic Name Dose Route Start Last Admin Trade Name Luis PRN Reason Stop Dose Admin Acetaminophen 325 mg 01/13/25 20:27 01/13/25 21:15 Acetaminophen 325 Mg Tablet PO 01/13/25 20:28 325 mg PRIOR TO BLOOD ONE Administration Diphenhydramine HCl Confirm 01/13/25 21:38 Diphenhydramine Hcl 25 Mg Capsule Administered 01/13/25 21:39 Dose 25 mg .ROUTE .STK-MED ONE Furosemide 20 mg 01/13/25 20:27 01/14/25 05:01 Furosemide 20 Mg/Vial IV 01/13/25 20:28 Not Given AFTER EA UNIT BLOOD ONE Pantoprazole Sodium 40 mg 01/14/25 10:00 01/14/25 09:31 Protonix (Pantoprazole) 40 Mg Tablet PO 02/13/25 09:59 40 mg QAM EFREN Administration Trazodone HCl Confirm 01/14/25 02:26 Trazodone Hcl 50 Mg Tablet Administered 01/14/25 02:27 Dose 50 mg .ROUTE .STK-MED ONE Assessment/Plan (1) Symptomatic anemia Current Visit: Yes Status: Acute Assessment & Plan: -Profound anemia (Hgb 5.2 on admission and now at 4.8) -Iron saturation of 4% and a ferritin of 4.04, confirming depleted iron stores - Reticulocyte hemoglobin content (CHr) is markedly reduced at 16.7 pg, indicating iron-deficient erythropoiesis -Retic count is 0.0817 - inappropriately low for the degree of anemia, suggesting a blunted marrow response due to iron deficiency -Vitamin B12 (474 ) and folate (>20 ) levels are within normal limits, ruling ou t megaloblastic anemia -There is no evidence of active hemolysis or overt bleeding. These findings are consistent with severe iron deficiency anemia, likely secondary to chronic occult gastrointestinal blood loss -Transfusion delayed due to the need for extended type and screen with antibody identification. Crossmatching is in progress to ensure compatibility and minimize transfusion reaction risk. Blood will be administered as soon as matched units are available -Ferrous sulfate -General surgery consult for eval for EGD/colonoscopy -occult stools pending -Xarelto on hold -Resume anticoagulation once hemoglobin stabilizes and no active bleeding is identified Code(s): D64.9 - ANEMIA, UNSPECIFIED (2) Paroxysmal A-fib Current Visit: Yes Status: Acute Assessment & Plan: -On chronic anticoagulation with Xarelto -No arrhythmia noted -Continue home amiodarone 200 mg daily and Lopressor 50 mg BID -Hold Xarelto during active anemia workup and transfusion phase -Consider resuming Xarelto if hemoglobin stabilizes and no bleeding source identified Code(s): I48.0 - PAROXYSMAL ATRIAL FIBRILLATION (3) CKD (chronic kidney disease) Current Visit: Yes Status: Acute Assessment & Plan: -Creat reviewed at 1.40- baseline around 1.3 -Avoid nephrotoxic agents -Monitor renal/lytes daily Code(s): N18.9 - CHRONIC KIDNEY DISEASE, UNSPECIFIED (4) CHF (congestive heart failure) Current Visit: Yes Status: Acute Assessment & Plan: -IV Lasix given after first unit PRBC to prevent volume overload -No recent echo on file -No signs of pulmonary or peripheral congestion Code(s): I50.9 - HEART FAILURE, UNSPECIFIED (5) HTN (hypertension) Current Visit: Yes Status: Acute Assessment & Plan: -currently low- monitor closely and Resume home Norvasc 5 mg and Lopressor 50 mg BID if appropriate Code(s): I10 - ESSENTIAL (PRIMARY) HYPERTENSION (6) GERD (gastroesophageal reflux disease) Current Visit: Yes Status: Acute Assessment & Plan: -On chronic Protonix and Carafate -Denies any history of GI ulcers or overt GI bleeding -Continue Protonix at 40mg bid IV and home Carafate VTE: SCD - hold xarelto due to profound anemia PPI: protonix Dispo: 1-2 days Code status: Full code Code(s): K21.9 - GASTRO-ESOPHAGEAL REFLUX DISEASE WITHOUT ESOPHAGITIS
[2025-01-14 10:57] LABS: ABO TYPING A; RH TYPING POSITIVE
[2025-01-14] MEDS: FEOSOL 325 MG PO SCH (10:57)
[2025-01-14 11:04] LABS: CROSS MATCH (PRBC) COMPATIBLE (COMPATIBLE)
[2025-01-14 11:05] LABS: CROSS MATCH (PRBC) COMPATIBLE (COMPATIBLE)
--- NOTE | 2025-01-14 14:41 | PCM.CONS ---
History of Present Illness - Reason for Consult Chief Complaint: fatigue Requesting Provider: LARISA DIAZ MD Consulting Provider: SARITHA TELLO MD History of Present Illness: is a 69 year old female. hx per chart review and d/w pt and dad at bedside. 69yo on xarelto for afib. presents with weakness feeling like she is going to pass out. profoundly anemic. getting transfused is feeling somewhat better after some transfusion started. no abd pain. does have baseline heartburn/reflux. had egd c scope around 2 years ago in [place]. that was normal. cologuard has been negative. she has had no gross blood per rectum. no vaginal bleeding. no external bleeding. had similar anemia issues around 2 years ago. did have iron infusions at some point. "- History of Present Illness Source: patient, publications manager Patient Subjective Stated Complaint: pt c/o of arm and leg achiness, feeling like she is going to pass out Triage Nursing Assessment: Pt brought to the ER by her father, vitals wnl, rates pain as 6/10, pulses normal, skin n/w/d, denies SOB, denies chest pain, doesn't appear to be in any distress Physician History: Patient is feeling fatigued. She said she feels like she is anemic. This has happened before. She had it worked up a while back in [place]. She said that "they did not find what was wrong". She said that she is just been getting progressively fatigued cannotDo what she used to do. There is been no acute blood loss that she is seen. She has had no chest pain. But she has had some shortness of breath.This is with exertion. She does not have any fever or chills or nausea vomiting or other systemic or toxic symptoms. Allergies/Adverse Reactions: No Known Drug Allergies Allergy (Verified 01/13/25 18:30) Home Medications: Amiodarone HCl 200 mg PO DAILY 01/13/25 [History] Amlodipine Besylate 5 mg [Norvasc 5 mg] 5 mg PO DAILY 01/13/25 [History] Furosemide 20 mg [Lasix 20 mg] 20 mg PO DAILY 01/13/25 [History] Metoprolol Tartrate 50 mg [Lopressor 50 MG] 50 mg PO BID 01/13/25 [History] PANTOPRAZOLE 40 mg Tablet [Protonix 40MG Tablet] 40 mg PO QAM 01/13/25 [History] Potassium Chloride 10 meq PO BID 01/13/25 [History] Rivaroxaban [Xarelto] 20 mg PO DAILY 01/13/25 [History] Sucralfate 1 gm [Carafate 1 GM] 1 g PO DAILY 01/13/25 [History] Hx Influenza Vaccination/Date Given: Yes Hx Pneumococcal Vaccination/Date Given: Yes Travel Risk - International Travel Have you traveled outside of the country in past 3 weeks: No - Emerging Infectious Disease Are you exhibiting symptoms associated with any current EIDs: No - Review of Systems Constitutional: Fatigue Eyes: No Symptoms Ears, Nose, & Throat: No Symptoms Respiratory: No Symptoms, Dyspnea on Exertion (BENNETT) Cardiac: No Symptoms Abdominal/Gastrointestinal: No Symptoms, No Hematemesis, No Hematochezia, No Melena, No Dysphagia Genitourinary Symptoms: No Symptoms Musculoskeletal: No Symptoms Skin: No Symptoms Neurological: No Symptoms Psychological: No Symptoms All Other Systems: Reviewed and Negative - Past Medical History Pertinent Past Medical History: Yes Cardiac History: Arrhythmia, High Cholesterol, Hypertension Other Medical History: hx of blood transfusion - Past Surgical History Past Surgical History: Yes Gastrointestinal: Cholecystectomy Female Surgical History: Section, Tubal Ligation - Social History Smoking Status: Never smoker Exposure to second hand smoke: No Drug Use: none - Social Determinants of Health Will the patient participate in the screening: Yes Do you worry about a steady place to live?: No Do you have any problems with any of the following?: No known problems In the past 12 months,have you had to go without utilities?: No Transportation Issues: No Has anyone in your support network made you feel unsafe?: No Have you or anyone in your house had to go w/o enough food: No " Medications & Allergies Home Medications: Home Medication List Amiodarone HCl 200 mg PO DAILY 01/13/25 [History Confirmed 01/13/25] Amlodipine Besylate 5 mg [Norvasc 5 mg] 5 mg PO DAILY 01/13/25 [History Confirmed 01/13/25] Furosemide 20 mg [Lasix 20 mg] 20 mg PO DAILY 01/13/25 [History Confirmed 01/13/25] Metoprolol Tartrate 50 mg [Lopressor 50 MG] 50 mg PO BID 01/13/25 [History Confirmed 01/13/25] PANTOPRAZOLE 40 mg Tablet [Protonix 40MG Tablet] 40 mg PO QAM 01/13/25 [History Confirmed 01/13/25] Potassium Chloride 10 meq PO BID 01/13/25 [History Confirmed 01/13/25] Rivaroxaban [Xarelto] 20 mg PO DAILY 01/13/25 [History Confirmed 01/13/25] Sucralfate 1 gm [Carafate 1 GM] 1 g PO DAILY 01/13/25 [History Confirmed 01/13/25] Allergies/Adverse Reactions: Allergies Allergy/AdvReac Type Severity Reaction Status Date / Time No Known Drug Allergies Allergy Verified 01/13/25 18:30 - Past Medical History Past Medical History: Yes Neurological History: No Pertinent History ENT History: Cataracts Cardiac History: Arrhythmia, High Cholesterol, Hypertension Respiratory History: No Pertinent History Endocrine Medical History: No Pertinent History Musculoskelatal History: No Pertinent History GI Medical History: No Pertinent History History: Renal Disease Pyscho-Social History: No Pertinent History Reproductive Disorders: No Pertinent History Comment: hx of blood transfusion - Past Surgical History Past Surgical History: Yes Neuro Surgical History: No Pertinent History Cardiac History: No Pertinent History Respiratory Surgery: No Pertinent History GI Surgical History: Cholecystectomy Genitourinary Surgical Hx: No Pertinent History Musculskeletal Surgical Hx: No Pertinent History Female Surgical History: Section, Tubal Ligation Significant Family History: cancer (Mother with skin cancer, brother with colon cancer, sister with breast cancer) - Social History Smoking Status: Former smoker Exposure to second hand smoke: No Alcohol: None Drug Use: none - Social Determinants of Health Will the patient participate in the screening: Yes Do you worry about a steady place to live?: No Do you have any problems with any of the following?: No known problems In the past 12 months,have you had to go without utilities?: No Have you or anyone in your house had to go without enough: No Transportation Issues: No Has anyone in your support network made you feel unsafe?: No Does the patient want assistance with any of the above?: No - Physical Exam Vital Signs: Vital Signs - 24 hr Temp Pulse Resp BP BP Pulse Ox 01/14/25 11:14 98.1 F 59 L 16 122/58 98 01/14/25 07:00 98.4 F 62 16 103/50 94 L 01/14/25 04:00 98.3 F 69 18 122/58 96 01/14/25 00:00 97.9 F 69 16 104/48 95 01/13/25 21:00 98.0 F 75 20 138/87 96 01/13/25 20:54 97.2 F 64 138/87 97 01/13/25 20:26 97 01/13/25 19:34 64 17 118/57 99 01/13/25 19:01 62 16 111/47 97 01/13/25 18:31 64 16 120/40 98 01/13/25 18:22 97.2 F 65 123/28 98 Additional Findings: 01/14/25 14:39 nad no scleral icterus neck symmetric nonlabored resps reg rate obese soft, nttp mild edema Results - Labs Lab/Micro Results: Lab Results-Last 24 Hours 01/13/25 01/13/25 01/13/25 Range/Units 19:30 19:30 19:30 WBC 7.7 (3.98-10.04) x10^3/uL RBC 2.21 L (3.93-5.22) x10^6/uL Hgb 5.2 L* (11.2-15.7) g/dL Hct 18.2 L (34.1-44.9) % MCV 82.4 (79.4-94.8) fL MCH 23.5 L (25.6-32.2) pg MCHC 28.6 L (32.2-35.5) g/dL RDW 16.8 H (11.7-14.4) % Plt Count 411 H (182-369) x10^3/uL MPV 9.9 (9.4-12.3) fL Gran % 67.9 (34.0-71.1) % Immature Gran % (Auto) 0.3 (0.001-0.429) % Reticulocyte % (Auto) 3.7 H (0.5-1.7) % Nucleat RBC Rel Count 0.5 H (0.00-0.2) % Eos # (Auto) 0.21 (0.04-0.36) x10^3/uL Immature Gran # (Auto) 0.02 (0.001-0.031) x10^3u/L Absolute Lymphs (auto) 1.46 (1.18-3.74) x10^3/uL Absolute Monos (auto) 0.72 (0.24-0.86) x10^3/uL Absolute Nucleated RBC 0.04 H (0.00-0.012) x10^3u/L Lymphocytes % 18.9 L (19.3-51.7) % Monocytes % 9.3 (4.7-12.5) % Eosinophils % 2.7 (0.7-5.8) % Basophils % 0.9 (0.1-1.2) % Absolute Granulocytes 5.23 (1.56-6.13) x10^3/uL Basophils # 0.07 (0.01-0.08) x10^3/uL Peripher Smr Path Cons Pending Absolute Retic 0.0817 H (0.0164-0.0776) x10^6/uL Retic Hgb Content 16.7 L (28-36.6) pg Sodium 136 (135-145) mmol/L Potassium 4.1 (3.5-5.1) mmol/L Chloride 103 (98-107) mmol/L Carbon Dioxide 25 (22-30) mmol/L Anion Gap 12.0 (5-15) MEQ/L BUN 19 H (7-17) mg/dL Creatinine 1.66 H (0.52-1.04) mg/dL Estimated GFR 33.4 ML/MIN Glucose 105 (74-106) mg/dL Calcium 9.1 (8.4-10.2) mg/dL Magnesium 2.1 (1.6-2.3) mg/dL Iron (37-170) ug/dL TIBC (265-462) ug/dL Iron Saturation (20-39) % Ferritin (11.1-264) ng/mL Total Bilirubin 0.30 (0.2-1.3) mg/dL AST 26 (14-36) U/L ALT 26 (0-35) U/L Alkaline Phosphatase 57 (38-126) U/L Lactate Dehydrogenase (120-246) U/L Serum Total Protein 6.5 (6.3-8.2) g/dL Albumin 4.1 (3.5-5.0) g/dL Vitamin B12 (239-931) pg/mL Folic Acid (2.76 - >20) ng/mL ABO Group Rh Factor Antibody Screen (NEGATIVE) Crossmatch (COMPATIBLE) 01/13/25 01/13/25 01/13/25 Range/Units 19:30 19:30 20:00 WBC (3.98-10.04) x10^3/uL RBC (3.93-5.22) x10^6/uL Hgb (11.2-15.7) g/dL Hct (34.1-44.9) % MCV (79.4-94.8) fL MCH (25.6-32.2) pg MCHC (32.2-35.5) g/dL RDW (11.7-14.4) % Plt Count (182-369) x10^3/uL MPV (9.4-12.3) fL Gran % (34.0-71.1) % Immature Gran % (Auto) (0.001-0.429) % Reticulocyte % (Auto) (0.5-1.7) % Nucleat RBC Rel Count (0.00-0.2) % Eos # (Auto) (0.04-0.36) x10^3/uL Immature Gran # (Auto) (0.001-0.031) x10^3u/L Absolute Lymphs (auto) (1.18-3.74) x10^3/uL Absolute Monos (auto) (0.24-0.86) x10^3/uL Absolute Nucleated RBC (0.00-0.012) x10^3u/L Lymphocytes % (19.3-51.7) % Monocytes % (4.7-12.5) % Eosinophils % (0.7-5.8) % Basophils % (0.1-1.2) % Absolute Granulocytes (1.56-6.13) x10^3/uL Basophils # (0.01-0.08) x10^3/uL Peripher Smr Path Cons Absolute Retic (0.0164-0.0776) x10^6/uL Retic Hgb Content (28-36.6) pg Sodium (135-145) mmol/L Potassium (3.5-5.1) mmol/L Chloride (98-107) mmol/L Carbon Dioxide (22-30) mmol/L Anion Gap (5-15) MEQ/L BUN (7-17) mg/dL Creatinine (0.52-1.04) mg/dL Estimated GFR ML/MIN Glucose (74-106) mg/dL Calcium (8.4-10.2) mg/dL Magnesium (1.6-2.3) mg/dL Iron 20 L (37-170) ug/dL TIBC 484 H (265-462) ug/dL Iron Saturation 4 L (20-39) % Ferritin 4.04 L (11.1-264) ng/mL Total Bilirubin (0.2-1.3) mg/dL AST (14-36) U/L ALT (0-35) U/L Alkaline Phosphatase (38-126) U/L Lactate Dehydrogenase 179 (120-246) U/L Serum Total Protein (6.3-8.2) g/dL Albumin (3.5-5.0) g/dL Vitamin B12 474 (239-931) pg/mL Folic Acid > 20.0 (2.76 - >20) ng/mL ABO Group A Rh Factor POSITIVE Antibody Screen NEGATIVE (NEGATIVE) Crossmatch (COMPATIBLE) 01/13/25 01/13/25 01/14/25 Range/Units 20:00 Unknown 04:00 WBC 7.2 (3.98-10.04) x10^3/uL RBC 2.03 L (3.93-5.22) x10^6/uL Hgb 4.8 L* (11.2-15.7) g/dL Hct 16.5 L (34.1-44.9) % MCV 81.3 (79.4-94.8) fL MCH 23.6 L (25.6-32.2) pg MCHC 29.1 L (32.2-35.5) g/dL RDW 16.9 H (11.7-14.4) % Plt Count 376 H (182-369) x10^3/uL MPV 10.7 (9.4-12.3) fL Gran % 59.1 (34.0-71.1) % Immature Gran % (Auto) 0.3 (0.001-0.429) % Reticulocyte % (Auto) (0.5-1.7) % Nucleat RBC Rel Count 0.4 H (0.00-0.2) % Eos # (Auto) 0.31 (0.04-0.36) x10^3/uL Immature Gran # (Auto) 0.02 (0.001-0.031) x10^3u/L Absolute Lymphs (auto) 1.86 (1.18-3.74) x10^3/uL Absolute Monos (auto) 0.69 (0.24-0.86) x10^3/uL Absolute Nucleated RBC 0.03 H (0.00-0.012) x10^3u/L Lymphocytes % 26.0 (19.3-51.7) % Monocytes % 9.7 (4.7-12.5) % Eosinophils % 4.3 (0.7-5.8) % Basophils % 0.6 (0.1-1.2) % Absolute Granulocytes 4.23 (1.56-6.13) x10^3/uL Basophils # 0.04 (0.01-0.08) x10^3/uL Peripher Smr Path Cons Absolute Retic (0.0164-0.0776) x10^6/uL Retic Hgb Content (28-36.6) pg Sodium (135-145) mmol/L Potassium (3.5-5.1) mmol/L Chloride (98-107) mmol/L Carbon Dioxide (22-30) mmol/L Anion Gap (5-15) MEQ/L BUN (7-17) mg/dL Creatinine (0.52-1.04) mg/dL Estimated GFR ML/MIN Glucose (74-106) mg/dL Calcium (8.4-10.2) mg/dL Magnesium (1.6-2.3) mg/dL Iron (37-170) ug/dL TIBC (265-462) ug/dL Iron Saturation (20-39) % Ferritin (11.1-264) ng/mL Total Bilirubin (0.2-1.3) mg/dL AST (14-36) U/L ALT (0-35) U/L Alkaline Phosphatase (38-126) U/L Lactate Dehydrogenase (120-246) U/L Serum Total Protein (6.3-8.2) g/dL Albumin (3.5-5.0) g/dL Vitamin B12 (239-931) pg/mL Folic Acid (2.76 - >20) ng/mL ABO Group Rh Factor Antibody Screen (NEGATIVE) Crossmatch COMPATIBLE COMPATIBLE (COMPATIBLE) 01/14/25 Range/Units 04:19 WBC (3.98-10.04) x10^3/uL RBC (3.93-5.22) x10^6/uL Hgb (11.2-15.7) g/dL Hct (34.1-44.9) % MCV (79.4-94.8) fL MCH (25.6-32.2) pg MCHC (32.2-35.5) g/dL RDW (11.7-14.4) % Plt Count (182-369) x10^3/uL MPV (9.4-12.3) fL Gran % (34.0-71.1) % Immature Gran % (Auto) (0.001-0.429) % Reticulocyte % (Auto) (0.5-1.7) % Nucleat RBC Rel Count (0.00-0.2) % Eos # (Auto) (0.04-0.36) x10^3/uL Immature Gran # (Auto) (0.001-0.031) x10^3u/L Absolute Lymphs (auto) (1.18-3.74) x10^3/uL Absolute Monos (auto) (0.24-0.86) x10^3/uL Absolute Nucleated RBC (0.00-0.012) x10^3u/L Lymphocytes % (19.3-51.7) % Monocytes % (4.7-12.5) % Eosinophils % (0.7-5.8) % Basophils % (0.1-1.2) % Absolute Granulocytes (1.56-6.13) x10^3/uL Basophils # (0.01-0.08) x10^3/uL Peripher Smr Path Cons Absolute Retic (0.0164-0.0776) x10^6/uL Retic Hgb Content (28-36.6) pg Sodium 137 (135-145) mmol/L Potassium 3.9 (3.5-5.1) mmol/L Chloride 107 (98-107) mmol/L Carbon Dioxide 26 (22-30) mmol/L Anion Gap 8.3 (5-15) MEQ/L BUN 19 H (7-17) mg/dL Creatinine 1.40 H (0.52-1.04) mg/dL Estimated GFR 41.0 ML/MIN Glucose 85 (74-106) mg/dL Calcium 8.9 (8.4-10.2) mg/dL Magnesium (1.6-2.3) mg/dL Iron (37-170) ug/dL TIBC (265-462) ug/dL Iron Saturation (20-39) % Ferritin (11.1-264) ng/mL Total Bilirubin (0.2-1.3) mg/dL AST (14-36) U/L ALT (0-35) U/L Alkaline Phosphatase (38-126) U/L Lactate Dehydrogenase (120-246) U/L Serum Total Protein (6.3-8.2) g/dL Albumin (3.5-5.0) g/dL Vitamin B12 (239-931) pg/mL Folic Acid (2.76 - >20) ng/mL ABO Group Rh Factor Antibody Screen (NEGATIVE) Crossmatch (COMPATIBLE) Assessment/Plan (1) Anemia Current Visit: Yes Status: Acute Assessment & Plan: 69yo anemia. she did have negative egd colonoscopy around 2 years ago per her history. no gross GI bleeding. profoundly anemic. discussed with patient very reasonable to do an egd to assess for any upper GI source. c scope less likely to identify source without any visible blood. she does want to proceed with egd. -plan is for egd 01/15 npo p midnight. Code(s): D64.9 - ANEMIA, UNSPECIFIED
[2025-01-14] MEDS: Lasix 20 MG/2 ML IV SCH (16:52)
[2025-01-14 17:59] LABS: Hematocrit 24.1 % (34.1-44.9)
[2025-01-14 18:00] LABS: Hemoglobin 7.4 g/dL (11.2-15.7)
[2025-01-14 18:57] LABS: CROSS MATCH (PRBC) COMPATIBLE (COMPATIBLE)
[2025-01-14] MEDS: PROTONIX 40 MG IV IV SCH (22:24)
[2025-01-15 04:57] LABS: BASOPHIL % 1.5 % (0.1-1.2); Basophil (Absolute #) 0.11 x10^3/uL (0.01-0.08); Eosinophil (Absolute #) 0.35 x10^3/uL (0.04-0.36); Hematocrit 27.7 % (34.1-44.9); Hemoglobin 8.6 g/dL (11.2-15.7); IMMATURE GRAN # 0.02 x10^3u/L (0.001-0.031); IMMATURE GRAN % 0.3 % (0.001-0.429); Lymphocyte (Absolute #) 1.63 x10^3/uL (1.18-3.74); Mean Corpuscular Hemoglobin 25.1 pg (25.6-32.2); Mean Corpuscular Hgb Concent. 31.0 g/dL (32.2-35.5); Monocyte (Absolute #) 0.82 x10^3/uL (0.24-0.86); NUCLEATED RBC # 0.03 x10^3u/L (0.00-0.012); NUCLEATED RBC % 0.4 % (0.00-0.2); Platelet Count 352 x10^3/uL (182-369); Red Blood Count 3.43 x10^6/uL (3.93-5.22); White Blood Count 7.2 x10^3/uL (3.98-10.04)
[2025-01-15 05:03] LABS: Calcium 8.4 mg/dL (8.4-10.2); Carbon Dioxide 24.0 mmol/L (22-30); Creatinine 1 1.48 mg/dL (0.52-1.04); EST GLOMERULAR FILTRATION RATE 38.3 ML/MIN; Glucose 82.0 mg/dL (74-106); Potassium 3.7 mmol/L (3.5-5.1); SGOT/AST 22.0 U/L (14-36); SGPT/ALT 21.0 U/L (0-35); Total Protein 6.0 g/dL (6.3-8.2)
[2025-01-15] MEDS: Dextrose 5%-Lr IV Solution 1000 ML 1,000 ML IV SCH (05:27)
[2025-01-15 07:20] VITALS: RESP 16
--- NOTE | 2025-01-15 08:56 | PCM.NOTE ---
Date and Time: 01/15/25 0847 Subjective Assessment: Ms. Alcazar is a 69 year old female with pmhx of AFIB (on xarelto), HTN, CHF, CKD, GERD who presented 01/13/25 with progressive fatigue and weakness. She reported that over the past several weeks, she has experienced increasing difficulty with exertion, now to the point of near-syncope after walking only a few steps. She denied chest pain, dyspnea, abdominal pain, nausea, melena, hematochezia, hematemesis, or hematuria. Notably, she recalled a similar episode several years ago requiring blood transfusion, during which an upper and lower endoscopy were reportedly unrevealing. Her most recent Cologuard was negative, and her last colonoscopy was performed a few years ago. She has been maintained on Xarelto without previous bleeding complications. She also has severe GERD, managed with PPI and Carafate, but denies any known history of gastric ulcers or prior upper GI bleeding. On presentation, her hemoglobin was found to be critically low at 5.2 with repeat at 4.8, prompting transfusion of two units of PRBCs. Smear detected antibodies delaying transfusion. The patients labs are consistent with severe iron deficiency anemia, evidenced by a ferritin of 4.04, iron saturation of 4%, and a low reticulocyte hemoglobin content (CHr) of 16.7 pg. The absolute reticulocyte count of 0.0817 is inappropriately low given the degree of anemia. Vitamin B12 and folate levels are within normal limits, ruling out megaloblastic anemia. Overall, findings strongly suggest iron deficiency from chronic occult blood loss, likely gastrointestinal in origin. Her chronic kidney disease is not severe enough to account for this degree of erythropoietin suppression, and there are no current signs pointing toward hemolysis or acute renal decompensation. The underlying cause of her iron deficiency remains unclear, and General Surgery has been consulted for inpatient endoscopic evaluation in the absence of in-house gastroenterology. 01/14/25: Met with patient bedside. She endorses continued fatigue and weakness with shortness of breath on exertion. Transfusion delayed secondary to positive antibody screen requiring extended crossmatch. Awaiting identification and compatible unit preparation. Patient is being monitored and will be transfused once safe units are available. Surgery has been consulted for evaluation of possible GI bleed. Will start ferrous sulfate. Occult stools pending. 01/15/25: No overnight events noted. Patient reports weakness/fatigue has improved s/p transfusion of 3 units. Surgery has evaluated the patient with plans for EGD today. Continues to deny acute blood loss- no hematochezia/vaginal bleeding. Hgb s/p transfusion improved to 8.6 (4.8). Denies fever,cough, sob, cp, abdominal pain, RIOS, dizziness, N/V/D. - Review of Systems Constitutional: Weakness Eyes: No Symptoms Ears, Nose, & Throat: No Symptoms Respiratory: No Symptoms Cardiac: No Symptoms Abdominal/Gastrointestinal: No Symptoms Genitourinary Symptoms: No Symptoms Musculoskeletal: No Symptoms Skin: No Symptoms Neurological: No Symptoms Psychological: No Symptoms Endocrine: No Symptoms Hematologic/Lymphatic: Anemia Immunological/Allergic: No Symptoms Objective Exam General Appearance: no apparent distress, obese Neurologic Exam: alert, oriented x 3, cooperative Skin Exam: pale Eye Exam: PERRL Ears, Nose, Throat Exam: normal ENT inspection Respiratory Exam: normal breath sounds, lungs clear Cardiovascular Exam: regular rate/rhythm, normal heart sounds Gastrointestinal/Abdomen Exam: soft, normal bowel sounds Extremity Exam: normal inspection Back Exam: normal inspection Pelvic Exam: deferred Rectal Exam: deferred Objective Data Vital Signs: Vital Signs - 24 hr Temp Pulse Resp BP Pulse Ox 01/15/25 07:18 98.4 F 62 16 138/65 93 L 01/15/25 04:00 99.3 F 59 L 18 137/63 95 01/14/25 23:40 98.3 F 61 159/72 01/14/25 19:54 98.6 F 58 L 18 121/59 96 01/14/25 15:54 97.4 F 59 L 129/60 01/14/25 11:14 98.1 F 59 L 16 122/58 98 Pain Assessment - Last Documented Pain Intensity 0 Pain Scale Used 0-10 Pain Scale Intake and Output: Intake & Output 01/12/25 01/13/25 01/14/25 01/15/25 11:59 11:59 11:59 11:59 Intake Total 480 2088 Balance 480 2088 Weight 84.64 kg Lab Results: Lab Results-Last 24 Hours 01/13/25 01/13/25 01/13/25 Range/Units 20:00 20:00 Unknown WBC (3.98-10.04) x10^3/uL RBC (3.93-5.22) x10^6/uL Hgb (11.2-15.7) g/dL Hct (34.1-44.9) % MCV (79.4-94.8) fL MCH (25.6-32.2) pg MCHC (32.2-35.5) g/dL RDW (11.7-14.4) % Plt Count (182-369) x10^3/uL MPV (9.4-12.3) fL Gran % (34.0-71.1) % Immature Gran % (Auto) (0.001-0.429) % Nucleat RBC Rel Count (0.00-0.2) % Eos # (Auto) (0.04-0.36) x10^3/uL Immature Gran # (Auto) (0.001-0.031) x10^3u/L Absolute Lymphs (auto) (1.18-3.74) x10^3/uL Absolute Monos (auto) (0.24-0.86) x10^3/uL Absolute Nucleated RBC (0.00-0.012) x10^3u/L Lymphocytes % (19.3-51.7) % Monocytes % (4.7-12.5) % Eosinophils % (0.7-5.8) % Basophils % (0.1-1.2) % Absolute Granulocytes (1.56-6.13) x10^3/uL Basophils # (0.01-0.08) x10^3/uL Sodium (135-145) mmol/L Potassium (3.5-5.1) mmol/L Chloride (98-107) mmol/L Carbon Dioxide (22-30) mmol/L Anion Gap (5-15) MEQ/L BUN (7-17) mg/dL Creatinine (0.52-1.04) mg/dL Estimated GFR ML/MIN Glucose (74-106) mg/dL Calcium (8.4-10.2) mg/dL Total Bilirubin (0.2-1.3) mg/dL AST (14-36) U/L ALT (0-35) U/L Alkaline Phosphatase (38-126) U/L Serum Total Protein (6.3-8.2) g/dL Albumin (3.5-5.0) g/dL ABO Group A Rh Factor POSITIVE Antibody Screen NEGATIVE (NEGATIVE) Crossmatch COMPATIBLE COMPATIBLE (COMPATIBLE) 01/14/25 01/14/25 01/15/25 Range/Units 17:55 Unknown 04:27 WBC 7.2 (3.98-10.04) x10^3/uL RBC 3.43 L (3.93-5.22) x10^6/uL Hgb 7.4 L D 8.6 L (11.2-15.7) g/dL Hct 24.1 L 27.7 L (34.1-44.9) % MCV 80.8 (79.4-94.8) fL MCH 25.1 L (25.6-32.2) pg MCHC 31.0 L (32.2-35.5) g/dL RDW 17.1 H (11.7-14.4) % Plt Count 352 (182-369) x10^3/uL MPV 10.3 (9.4-12.3) fL Gran % 59.6 (34.0-71.1) % Immature Gran % (Auto) 0.3 (0.001-0.429) % Nucleat RBC Rel Count 0.4 H (0.00-0.2) % Eos # (Auto) 0.35 (0.04-0.36) x10^3/uL Immature Gran # (Auto) 0.02 (0.001-0.031) x10^3u/L Absolute Lymphs (auto) 1.63 (1.18-3.74) x10^3/uL Absolute Monos (auto) 0.82 (0.24-0.86) x10^3/uL Absolute Nucleated RBC 0.03 H (0.00-0.012) x10^3u/L Lymphocytes % 22.5 (19.3-51.7) % Monocytes % 11.3 (4.7-12.5) % Eosinophils % 4.8 (0.7-5.8) % Basophils % 1.5 H (0.1-1.2) % Absolute Granulocytes 4.30 (1.56-6.13) x10^3/uL Basophils # 0.11 H (0.01-0.08) x10^3/uL Sodium (135-145) mmol/L Potassium (3.5-5.1) mmol/L Chloride (98-107) mmol/L Carbon Dioxide (22-30) mmol/L Anion Gap (5-15) MEQ/L BUN (7-17) mg/dL Creatinine (0.52-1.04) mg/dL Estimated GFR ML/MIN Glucose (74-106) mg/dL Calcium (8.4-10.2) mg/dL Total Bilirubin (0.2-1.3) mg/dL AST (14-36) U/L ALT (0-35) U/L Alkaline Phosphatase (38-126) U/L Serum Total Protein (6.3-8.2) g/dL Albumin (3.5-5.0) g/dL ABO Group Rh Factor Antibody Screen (NEGATIVE) Crossmatch COMPATIBLE (COMPATIBLE) 01/15/25 Range/Units 04:27 WBC (3.98-10.04) x10^3/uL RBC (3.93-5.22) x10^6/uL Hgb (11.2-15.7) g/dL Hct (34.1-44.9) % MCV (79.4-94.8) fL MCH (25.6-32.2) pg MCHC (32.2-35.5) g/dL RDW (11.7-14.4) % Plt Count (182-369) x10^3/uL MPV (9.4-12.3) fL Gran % (34.0-71.1) % Immature Gran % (Auto) (0.001-0.429) % Nucleat RBC Rel Count (0.00-0.2) % Eos # (Auto) (0.04-0.36) x10^3/uL Immature Gran # (Auto) (0.001-0.031) x10^3u/L Absolute Lymphs (auto) (1.18-3.74) x10^3/uL Absolute Monos (auto) (0.24-0.86) x10^3/uL Absolute Nucleated RBC (0.00-0.012) x10^3u/L Lymphocytes % (19.3-51.7) % Monocytes % (4.7-12.5) % Eosinophils % (0.7-5.8) % Basophils % (0.1-1.2) % Absolute Granulocytes (1.56-6.13) x10^3/uL Basophils # (0.01-0.08) x10^3/uL Sodium 139 (135-145) mmol/L Potassium 3.7 (3.5-5.1) mmol/L Chloride 108 H (98-107) mmol/L Carbon Dioxide 24 (22-30) mmol/L Anion Gap 10.9 (5-15) MEQ/L BUN 22 H (7-17) mg/dL Creatinine 1.48 H (0.52-1.04) mg/dL Estimated GFR 38.3 ML/MIN Glucose 82 (74-106) mg/dL Calcium 8.4 (8.4-10.2) mg/dL Total Bilirubin 0.40 (0.2-1.3) mg/dL AST 22 (14-36) U/L ALT 21 (0-35) U/L Alkaline Phosphatase 54 (38-126) U/L Serum Total Protein 6.0 L (6.3-8.2) g/dL Albumin 3.7 (3.5-5.0) g/dL ABO Group Rh Factor Antibody Screen (NEGATIVE) Crossmatch (COMPATIBLE) Medications: Medications Generic Name Dose Route Start Last Admin Trade Name Freq PRN Reason Stop Dose Admin Acetaminophen 650 mg 01/13/25 20:44 Acetaminophen 325 Mg Tablet PO 02/12/25 20:43 Q6H PRN PRN PAIN AND/OR FEVER Amiodarone HCl 200 mg 01/14/25 10:00 01/14/25 09:31 Amiodarone Hcl 200 Mg Tab PO 02/13/25 09:59 200 mg DAILY EFREN Administration Amlodipine Besylate 5 mg 01/14/25 10:00 01/14/25 09:32 Amlodipine Besylate 5 Mg Tablet PO 02/13/25 09:59 5 mg DAILY EFREN Administration Ferrous Sulfate 325 mg 01/14/25 10:00 01/14/25 10:57 Ferrous Sulfate 325 Mg Tablet PO 02/13/25 09:59 325 mg DAILY EFREN Administration Furosemide 20 mg 01/14/25 10:00 01/14/25 09:32 Furosemide 20 Mg Tablet PO 02/13/25 09:59 20 mg DAILY EFREN Administration Dextrose/Lactated Ringer's 1,000 mls @ 75 mls/hr 07/24/25 05:30 01/15/25 05:27 Dextrose 5%-Lr Iv Solution 1000 Ml IV 01/17/25 05:29 75 mls/hr .[id number] EFREN Administration Metoprolol Tartrate 50 mg 01/13/25 22:00 01/14/25 22:23 Metoprolol Tartrate 50 Mg Tablet PO 02/12/25 21:59 50 mg BID EFREN Administration Pantoprazole Sodium 40 mg 01/14/25 22:00 01/14/25 22:24 Pantoprazole 40 Mg Vial IV 02/13/25 21:59 40 mg BID EFREN Administration Potassium Chloride 10 meq 01/13/25 22:00 01/14/25 22:23 Potassium Chloride Tab 10 Meq Tab PO 02/12/25 21:59 10 meq BID EFREN Administration Sucralfate 1 g 01/14/25 07:30 01/15/25 08:40 Sucralfate 1 G Tablet PO 02/13/25 07:29 Not Given DAILY@0730 EFREN Trazodone HCl 50 mg 01/14/25 22:00 01/14/25 22:23 Trazodone Hcl 50 Mg Tablet PO 02/13/25 21:59 50 mg HS EFREN Administration Discontinued Medications Generic Name Dose Route Start Last Admin Trade Name Cooperq PRN Reason Stop Dose Admin Acetaminophen 325 mg 01/13/25 20:27 01/13/25 21:15 Acetaminophen 325 Mg Tablet PO 01/13/25 20:28 325 mg PRIOR TO BLOOD ONE Administration Diphenhydramine HCl Confirm 01/13/25 21:38 Diphenhydramine Hcl 25 Mg Capsule Administered 01/13/25 21:39 Dose 25 mg .ROUTE .STK-MED ONE Furosemide 20 mg 01/13/25 20:27 01/14/25 05:01 Furosemide 20 Mg/Vial IV 01/13/25 20:28 Not Given AFTER EA UNIT BLOOD ONE Furosemide 20 mg 01/14/25 13:57 01/14/25 16:52 Furosemide 20 Mg/Vial IV 01/14/25 23:00 20 mg AFTER LAST UNIT EFREN Administration Furosemide 20 mg 01/14/25 18:17 01/14/25 22:23 Furosemide 20 Mg/Vial IV 01/14/25 18:18 20 mg AFTER LAST UNIT ONE Administration Sodium Chloride 1,000 mls @ 125 mls/hr 01/14/25 11:15 01/14/25 11:29 Sodium Chloride 0.9% 1000 Ml IV 02/13/25 11:14 125 mls/hr .Q8H EFREN Administration Pantoprazole Sodium 40 mg 01/14/25 10:00 01/14/25 09:31 Protonix (Pantoprazole) 40 Mg Tablet PO 02/13/25 09:59 40 mg QAM EFREN Administration Trazodone HCl Confirm 01/14/25 02:26 Trazodone Hcl 50 Mg Tablet Administered 01/14/25 02:27 Dose 50 mg .ROUTE .STK-MED ONE Assessment/Plan (1) Symptomatic anemia Current Visit: Yes Status: Acute Assessment & Plan: -Profound anemia (Hgb 5.2 on admission and now at 4.8) -Iron saturation of 4% and a ferritin of 4.04, confirming depleted iron stores - Reticulocyte hemoglobin content (CHr) is markedly reduced at 16.7 pg, indicating iron-deficient erythropoiesis -Retic count is 0.0817 - inappropriately low for the degree of anemia, suggesting a blunted marrow response due to iron deficiency -Vitamin B12 (474 ) and folate (>20 ) levels are within normal limits, ruling out megaloblastic anemia -There is no evidence of active hemolysis or overt bleeding. These findings are consistent with severe iron deficiency anemia, likely secondary to chronic occult gastrointestinal blood loss -Transfusion delayed due to the need for extended type and screen with antibody identification. Crossmatching is in progress to ensure compatibility and min imize transfusion reaction risk. Blood will be administered as soon as matched units are available -Ferrous sulfate -General surgery consult for eval for EGD/colonoscopy -occult stools pending -Xarelto on hold -Resume anticoagulation once hemoglobin stabilizes and no active bleeding is identified 01/15: -Received 3 units LPRBC -Hgb reviewed at 8.6-no kenzie bleeding -Occult stools pending collection -Surgery consulted -note reviewed- agree with plans for EGD -continue ferrous sulfate -Advised hematology follow up as OP for iron deficiency and iron infusions- appt scheduled with Lynette Code(s): D64.9 - ANEMIA, UNSPECIFIED (2) Paroxysmal A-fib Current Visit: Yes Status: Acute Assessment & Plan: -On chronic anticoagulation with Xarelto -No arrhythmia noted -Continue home amiodarone 200 mg daily and Lopressor 50 mg BID -Hold Xarelto during active anemia workup and transfusion phase -Consider resuming Xarelto if hemoglobin stabilizes and no bleeding source identified Code(s): I48.0 - PAROXYSMAL ATRIAL FIBRILLATION (3) CKD (chronic kidney disease) Current Visit: Yes Status: Acute Assessment & Plan: -Creat reviewed at 1.40- baseline around 1.3 -Avoid nephrotoxic agents -Monitor renal/lytes daily 01/15: -Creat reviewed at 1.48 - continue IVF Code(s): N18.9 - CHRONIC KIDNEY DISEASE, UNSPECIFIED (4) CHF (congestive heart failure) Current Visit: Yes Status: Acute Assessment & Plan: -IV Lasix given after first unit PRBC to prevent volume overload -No recent echo on file -No signs of pulmonary or peripheral congestion 01/15: -Patient reports no history of CHF- no recent echo on file Code(s): I50.9 - HEART FAILURE, UNSPECIFIED (5) HTN (hypertension) Current Visit: Yes Status: Acute Assessment & Plan: -currently low- monitor closely and Resume home Norvasc 5 mg and Lopressor 50 mg BID if appropriate 01/15: -stable - continue home meds Code(s): I10 - ESSENTIAL (PRIMARY) HYPERTENSION (6) GERD (gastroesophageal reflux disease) Current Visit: Yes Status: Acute Assessment & Plan: -On chronic Protonix and Carafate -Denies any history of GI ulcers or overt GI bleeding -Continue Protonix at 40mg bid IV and home Carafate VTE: SCD - hold xarelto due to profound anemia PPI: protonix Dispo: 1-2 days Code status: Full code Code(s): D64.9 - ANEMIA, UNSPECIFIED (2) Paroxysmal A-fib Current Visit: Yes Status: Acute Code(s): I48.0 - PAROXYSMAL ATRIAL FIBRILLATION (3) CKD (chronic kidney disease) Current Visit: Yes Status: Acute Code(s): N18.9 - CHRONIC KIDNEY DISEASE, UNSPECIFIED (4) CHF (congestive heart failure) Current Visit: Yes Status: Acute Code(s): I50.9 - HEART FAILURE, UNSPECIFIED (5) HTN (hypertension) Current Visit: Yes Status: Acute Code(s): I10 - ESSENTIAL (PRIMARY) HYPERTENSION (6) GERD (gastroesophageal reflux disease) Current Visit: Yes Status: Acute Code(s): K21.9 - GASTRO-ESOPHAGEAL REFLUX DISEASE WITHOUT ESOPHAGITIS
[2025-01-15] MEDS: TYLENOL 325 MG PO PRN (10:43)
[2025-01-15] MEDS: Lactated Ringers 1,000 ML IV SCH (15:42)
[2025-01-15] MEDS ORDERED: propofoL IV ONE (15:56)
--- NOTE | 2025-01-15 16:10 | PCM.NOTE ---
Date and Time: 01/15/25 1609 Objective Data Vital Signs: Vital Signs - 24 hr Temp Pulse Resp BP Pulse Ox 01/15/25 15:44 97.8 F 59 L 16 152/67 96 01/15/25 13:24 97.8 F 55 L 16 140/64 98 01/15/25 11:39 97.8 F 55 L 16 140/64 98 01/15/25 07:18 98.4 F 62 16 138/65 93 L 01/15/25 04:00 99.3 F 59 L 18 137/63 95 01/14/25 23:40 98.3 F 61 159/72 01/14/25 19:54 98.6 F 58 L 18 121/59 96 Pain Assessment - Last Documented Pain Intensity 0 Pain Scale Used 0-10 Pain Scale Intake and Output: Intake & Output 01/13/25 01/14/25 01/15/25 01/16/25 11:59 11:59 11:59 11:59 Intake Total 480 2088 Balance 480 2088 Weight 84.64 kg 84.64 kg Lab Results: Lab Results-Last 24 Hours 01/13/25 01/13/25 01/14/25 Range/Units 19:30 19:30 17:55 WBC 7.7 (3.98-10.04) x10^3/uL RBC 2.21 L (3.93-5.22) x10^6/uL Hgb 5.2 L* 7.4 L D (11.2-15.7) g/dL Hct 18.2 L 24.1 L (34.1-44.9) % MCV 82.4 (79.4-94.8) fL MCH 23.5 L (25.6-32.2) pg MCHC 28.6 L (32.2-35.5) g/dL RDW 16.8 H (11.7-14.4) % Plt Count 411 H (182-369) x10^3/uL MPV 9.9 (9.4-12.3) fL Gran % 67.9 (34.0-71.1) % Immature Gran % (Auto) 0.3 (0.001-0.429) % Nucleat RBC Rel Count 0.5 H (0.00-0.2) % Eos # (Auto) 0.21 (0.04-0.36) x10^3/uL Immature Gran # (Auto) 0.02 (0.001-0.031) x10^3u/L Absolute Lymphs (auto) 1.46 (1.18-3.74) x10^3/uL Absolute Monos (auto) 0.72 (0.24-0.86) x10^3/uL Absolute Nucleated RBC 0.04 H (0.00-0.012) x10^3u/L Lymphocytes % 18.9 L (19.3-51.7) % Monocytes % 9.3 (4.7-12.5) % Eosinophils % 2.7 (0.7-5.8) % Basophils % 0.9 (0.1-1.2) % Absolute Granulocytes 5.23 (1.56-6.13) x10^3/uL Basophils # 0.07 (0.01-0.08) x10^3/uL Peripher Smr Path Cons Cancelled Smear Path Review Sodium (135-145) mmol/L Potassium (3.5-5.1) mmol/L Chloride (98-107) mmol/L Carbon Dioxide (22-30) mmol/L Anion Gap (5-15) MEQ/L BUN (7-17) mg/dL Creatinine (0.52-1.04) mg/dL Estimated GFR ML/MIN Glucose (74-106) mg/dL Calcium (8.4-10.2) mg/dL Total Bilirubin (0.2-1.3) mg/dL AST (14-36) U/L ALT (0-35) U/L Alkaline Phosphatase (38-126) U/L Serum Total Protein (6.3-8.2) g/dL Albumin (3.5-5.0) g/dL Crossmatch (COMPATIBLE) 01/14/25 01/15/25 01/15/25 Range/Units Unknown 04:27 04:27 WBC 7.2 (3.98-10.04) x10^3/uL RBC 3.43 L (3.93-5.22) x10^6/uL Hgb 8.6 L (11.2-15.7) g/dL Hct 27.7 L (34.1-44.9) % MCV 80.8 (79.4-94.8) fL MCH 25.1 L (25.6-32.2) pg MCHC 31.0 L (32.2-35.5) g/dL RDW 17.1 H (11.7-14.4) % Plt Count 352 (182-369) x10^3/uL MPV 10.3 (9.4-12.3) fL Gran % 59.6 (34.0-71.1) % Immature Gran % (Auto) 0.3 (0.001-0.429) % Nucleat RBC Rel Count 0.4 H (0.00-0.2) % Eos # (Auto) 0.35 (0.04-0.36) x10^3/uL Immature Gran # (Auto) 0.02 (0.001-0.031) x10^3u/L Absolute Lymphs (auto) 1.63 (1.18-3.74) x10^3/uL Absolute Monos (auto) 0.82 (0.24-0.86) x10^3/uL Absolute Nucleated RBC 0.03 H (0.00-0.012) x10^3u/L Lymphocytes % 22.5 (19.3-51.7) % Monocytes % 11.3 (4.7-12.5) % Eosinophils % 4.8 (0.7-5.8) % Basophils % 1.5 H (0.1-1.2) % Absolute Granulocytes 4.30 (1.56-6.13) x10^3/uL Basophils # 0.11 H (0.01-0.08) x10^3/uL Peripher Smr Path Cons Smear Path Review Sodium 139 (135-145) mmol/L Potassium 3.7 (3.5-5.1) mmol/L Chloride 108 H (98-107) mmol/L Carbon Dioxide 24 (22-30) mmol/L Anion Gap 10.9 (5-15) MEQ/L BUN 22 H (7-17) mg/dL Creatinine 1.48 H (0.52-1.04) mg/dL Estimated GFR 38.3 ML/MIN Glucose 82 (74-106) mg/dL Calcium 8.4 (8.4-10.2) mg/dL Total Bilirubin 0.40 (0.2-1.3) mg/dL AST 22 (14-36) U/L ALT 21 (0-35) U/L Alkaline Phosphatase 54 (38-126) U/L Serum Total Protein 6.0 L (6.3-8.2) g/dL Albumin 3.7 (3.5-5.0) g/dL Crossmatch COMPATIBLE (COMPATIBLE) Medications: Medications Generic Name Dose Route Start Last Admin Trade Name Freq PRN Reason Stop Dose Admin Acetaminophen 650 mg 01/13/25 20:44 01/15/25 10:43 Acetaminophen 325 Mg Tablet PO 02/12/25 20:43 650 mg Q6H PRN PRN Administration PAIN AND/OR FEVER Amiodarone HCl 200 mg 01/14/25 10:00 01/15/25 10:42 Amiodarone Hcl 200 Mg Tab PO 02/13/25 09:59 200 mg DAILY EFREN Administration Amlodipine Besylate 5 mg 01/14/25 10:00 01/15/25 10:42 Amlodipine Besylate 5 Mg Tablet PO 02/13/25 09:59 5 mg DAILY EFREN Administration Ferrous Sulfate 325 mg 01/14/25 10:00 01/15/25 10:42 Ferrous Sulfate 325 Mg Tablet PO 02/13/25 09:59 325 mg DAILY EFREN Administration Furosemide 20 mg 01/14/25 10:00 01/14/25 09:32 Furosemide 20 Mg Tablet PO 02/13/25 09:59 20 mg DAILY EFREN Administration Lactated Ringer's 1,000 mls @ 125 mls/hr 01/15/25 14:00 01/15/25 15:42 Lactated Ringers IV 02/14/25 13:59 125 mls/hr .Q8H EFREN Administration Metoprolol Tartrate 50 mg 01/13/25 22:00 01/15/25 10:42 Metoprolol Tartrate 50 Mg Tablet PO 02/12/25 21:59 50 mg BID EFREN Administration Pantoprazole Sodium 40 mg 01/14/25 22:00 01/15/25 10:43 Pantoprazole 40 Mg Vial IV 02/13/25 21:59 40 mg BID EFREN Administration Potassium Chloride 10 meq 01/13/25 22:00 01/15/25 10:42 Potassium Chloride Tab 10 Meq Tab PO 02/12/25 21:59 10 meq BID EFREN Administration Sucralfate 1 g 01/14/25 07:30 01/15/25 08:40 Sucralfate 1 G Tablet PO 02/13/25 07:29 Not Given DAILY@0730 EFREN Trazodone HCl 50 mg 01/15/25 22:00 Trazodone Hcl 50 Mg Tablet PO 02/14/25 21:59 HS EFREN Discontinued Medications Generic Name Dose Route Start Last Admin Trade Name Luis PRN Reason Stop Dose Admin Acetaminophen 325 mg 01/13/25 20:27 01/13/25 21:15 Acetaminophen 325 Mg Tablet PO 01/13/25 20:28 325 mg PRIOR TO BLOOD ONE Administration Diphenhydramine HCl Confirm 01/13/25 21:38 Diphenhydramine Hcl 25 Mg Capsule Administered 01/13/25 21:39 Dose 25 mg .ROUTE .STK-MED ONE Furosemide 20 mg 01/13/25 20:27 01/14/25 05:01 Furosemide 20 Mg/Vial IV 01/13/25 20:28 Not Given AFTER EA UNIT BLOOD ONE Furosemide 20 mg 01/14/25 13:57 01/14/25 16:52 Furosemide 20 Mg/Vial IV 01/14/25 23:00 20 mg AFTER LAST UNIT EFREN Administration Furosemide 20 mg 01/14/25 18:17 01/14/25 22:23 Furosemide 20 Mg/Vial IV 01/14/25 18:18 20 mg AFTER LAST UNIT ONE Administration Sodium Chloride 1,000 mls @ 125 mls/hr 01/14/25 11:15 01/15/25 16:08 Sodium Chloride 0.9% 1000 Ml IV 02/13/25 11:14 Not Given .Q8H EFREN Dextrose/Lactated Ringer's 1,000 mls @ 75 mls/hr 01/15/25 05:30 01/15/25 05:27 Dextrose 5%-Lr Iv Solution 1000 Ml IV 01/17/25 05:29 75 mls/hr .[id number] EFREN Administration Pantoprazole Sodium 40 mg 01/14/25 10:00 01/14/25 09:31 Protonix (Pantoprazole) 40 Mg Tablet PO 02/13/25 09:59 40 mg QAM EFREN Administration Propofol Confirm 01/15/25 15:56 Propofol 200 Mg/20 Ml Vial Administered 01/15/25 15:57 Dose 200 mg IV .STK-MED ONE Trazodone HCl 50 mg 01/14/25 22:00 01/14/25 22:23 Trazodone Hcl 50 Mg Tablet PO 02/13/25 21:59 50 mg HS EFREN Administration Trazodone HCl Confirm 01/14/25 02:26 Trazodone Hcl 50 Mg Tablet Administered 01/14/25 02:27 Dose 50 mg .ROUTE .STK-MED ONE Multi-Disciplinary Progress Notes: Multi-Disciplinary Progress Notes 01/15/25 09:06 Case Management Note by Yoli Huertas S/W PATIENT AND SHE CONTINUES TO DENY ADDITIONAL NEW NEEDS AT OK. PLANS TO RETURN HOME WITH HER FIANCE[facility] AT HER PLOF. HER BROTHER AND DAD LIVE CLOSE FOR ADDITIONAL SUPPORT IF NEEDED. Initialized on 01/15/25 09:06 - END OF NOTE Assessment/Plan (1) Anemia Current Visit: Yes Status: Acute Assessment & Plan: S: no acute issues overnight. no gross bleeding. feeling a little better after the blood. no abd pain. o nad nonlabored resps nd, soft, nttp a/P: continue with EGD today, mac. Code(s): D64.9 - ANEMIA, UNSPECIFIED
--- NOTE | 2025-01-15 17:01 | PCM.DS ---
Discharge Summary Date of Admission: 01/13/25 20:33 Date of Discharge: 01/15/25 Admitting Physician: LARISA DIAZ MD Consults: Consults on Case 01/14/25 09:41 Consult Surgery ROUTINE Primary Care Provider: JAY MONTEZ MD Allergies Allergies No Known Drug Allergies Allergy (Verified 01/13/25 18:30) Hospital Summary - Hospital Course Hospital Course: Ms. Alcazar is a 69-year-old female with a complex past medical history including paroxysmal atrial fibrillation on chronic anticoagulation with Xarelto, hypertension, congestive heart failure (CHF), chronic kidney disease (CKD), and gastroesophageal reflux disease (GERD). She presented to the hospital with progressive fatigue, generalized weakness, and near-syncope with minimal exertion. She denied overt signs of bleeding, including melena, hematemesis, hematochezia, hematuria, or vaginal bleeding. Notably, she had experienced a similar episode several years prior which required transfusion, though prior upper and lower endoscopies were reportedly unrevealing. Initial workup was remarkable for profound anemia with a hemoglobin level of 5.2 g/dL, which dropped to 4.8 g/dL on repeat. Iron studies were consistent with severe iron deficiency, with a ferritin level of 4.04 ng/mL, iron saturation of 4%, and a low reticulocyte hemoglobin content (CHr) of 16.7 pg. Reticulocyte count was inappropriately low (0.0817), suggesting inadequate marrow response due to iron- deficient erythropoiesis. Vitamin B12 and folate levels were within normal limits, effectively ruling out megaloblastic anemia. There were no signs of hemolysis, and creatinine levels remained stable around her baseline of 1.31.4, indicating that CKD alone could not account for the severity of anemia. Her blood transfusion was initially delayed due to the identification of alloantibodies on extended type and screen, requiring crossmatch of compatible units. She ultimately received 3 units of LPRBCs with good post-transfusion response, improving her hemoglobin to 8.6. To identify a source of occult blood loss, General Surgery was consulted in lieu of in-house gastroenterology. An EGD was performed, which showed no evidence of acute or chronic gastrointestinal bleeding, ulcers, or erosive esophagitis. Occult stool tests were ordered but not completed during the admission. Xarelto was held during hospitalization due to concern for ongoing occult gastrointestinal blood loss and the need for transfusion. She was monitored closely for signs of active bleeding and hemodynamic instability, neither of which developed. She continued her home PPI and Carafate without GI complaints during her stay. Surgery has cleared patient for discharge. Upon discharge, Ms. Alcazar was clinically stable, ambulating without presyncopal symptoms, and tolerating diet. She denied chest pain, shortness of breath, dizziness, or gastrointestinal symptoms. Her hemoglobin remained stable post-transfusion. She was advised to follow up with her primary care provider within one week with repeat CBC and with hematology (appointment scheduled with Dr. Ojeda) for evaluation of iron deficiency and potential iron infusions. Xarelto has been resumed. Discharge Note New Diagnosis: Symptomatic anemia New Medications: Ferrous sulfate Follow Up: PCP/Lynette Noel spent 35 minutes [id number] with the patient on the day of discharge performing discharge exam, discussing hospital stay and discharge instructions with patient and caregivers, preparation of discharge records, prescriptions & referral forms and addressing any questions/concerns the patient had as documented above. - Vitals & Intake/Output Vital Signs: Vital Signs Temperature 97.6 F 01/15/25 16:48 Pulse Rate 58 L 01/15/25 16:48 Respiratory Rate 16 01/15/25 15:44 Blood Pressure 165/70 01/15/25 16:48 O2 Sat by Pulse Oximetry 96 01/15/25 16:48 Intake & Output: Intake & Output 01/13/25 01/14/25 01/15/25 01/16/25 11:59 11:59 11:59 11:59 Intake Total 480 2088 Balance 480 2088 Weight 84.64 kg 84.64 kg - Lab Result Diagrams: 01/15/25 04:27 01/15/25 04:27 Lab Results-Last 24 Hrs: Lab Results-Last 24 Hours 01/13/25 01/13/25 01/14/25 Range/Units 19:30 19:30 17:55 WBC 7.7 (3.98-10.04) x10^3/uL RBC 2.21 L (3.93-5.22) x10^6/uL Hgb 5.2 L* 7.4 L D (11.2-15.7) g/dL Hct 18.2 L 24.1 L (34.1-44.9) % MCV 82.4 (79.4-94.8) fL MCH 23.5 L (25.6-32.2) pg MCHC 28.6 L (32.2-35.5) g/dL RDW 16.8 H (11.7-14.4) % Plt Count 411 H (182-369) x10^3/uL MPV 9.9 (9.4-12.3) fL Gran % 67.9 (34.0-71.1) % Immature Gran % (Auto) 0.3 (0.001-0.429) % Nucleat RBC Rel Count 0.5 H (0.00-0.2) % Eos # (Auto) 0.21 (0.04-0.36) x10^3/uL Immature Gran # (Auto) 0.02 (0.001-0.031) x10^3u/L Absolute Lymphs (auto) 1.46 (1.18-3.74) x10^3/uL Absolute Monos (auto) 0.72 (0.24-0.86) x10^3/uL Absolute Nucleated RBC 0.04 H (0.00-0.012) x10^3u/L Lymphocytes % 18.9 L (19.3-51.7) % Monocytes % 9.3 (4.7-12.5) % Eosinophils % 2.7 (0.7-5.8) % Basophils % 0.9 (0.1-1.2) % Absolute Granulocytes 5.23 (1.56-6.13) x10^3/uL Basophils # 0.07 (0.01-0.08) x10^3/uL Peripher Smr Path Cons Cancelled Smear Path Review Sodium (135-145) mmol/L Potassium (3.5-5.1) mmol/L Chloride (98-107) mmol/L Carbon Dioxide (22-30) mmol/L Anion Gap (5-15) MEQ/L BUN (7-17) mg/dL Creatinine (0.52-1.04) mg/dL Estimated GFR ML/MIN Glucose (74-106) mg/dL Calcium (8.4-10.2) mg/dL Total Bilirubin (0.2-1.3) mg/dL AST (14-36) U/L ALT (0-35) U/L Alkaline Phosphatase (38-126) U/L Serum Total Protein (6.3-8.2) g/dL Albumin (3.5-5.0) g/dL Crossmatch (COMPATIBLE) 01/14/25 01/15/25 01/15/25 Range/Units Unknown 04:27 04:27 WBC 7.2 (3.98-10.04) x10^3/uL RBC 3.43 L (3.93-5.22) x10^6/uL Hgb 8.6 L (11.2-15.7) g/dL Hct 27.7 L (34.1-44.9) % MCV 80.8 (79.4-94.8) fL MCH 25.1 L (25.6-32.2) pg MCHC 31.0 L (32.2-35.5) g/dL RDW 17.1 H (11.7-14.4) % Plt Count 352 (182-369) x10^3/uL MPV 10.3 (9.4-12.3) fL Gran % 59.6 (34.0-71.1) % Immature Gran % (Auto) 0.3 (0.001-0.429) % Nucleat RBC Rel Count 0.4 H (0.00-0.2) % Eos # (Auto) 0.35 (0.04-0.36) x10^3/uL Immature Gran # (Auto) 0.02 (0.001-0.031) x10^3u/L Absolute Lymphs (auto) 1.63 (1.18-3.74) x10^3/uL Absolute Monos (auto) 0.82 (0.24-0.86) x10^3/uL Absolute Nucleated RBC 0.03 H (0.00-0.012) x10^3u/L Lymphocytes % 22.5 (19.3-51.7) % Monocytes % 11.3 (4.7-12.5) % Eosinophils % 4.8 (0.7-5.8) % Basophils % 1.5 H (0.1-1.2) % Absolute Granulocytes 4.30 (1.56-6.13) x10^3/uL Basophils # 0.11 H (0.01-0.08) x10^3/uL Peripher Smr Path Cons Smear Path Review Sodium 139 (135-145) mmol/L Potassium 3.7 (3.5-5.1) mmol/L Chloride 108 H (98-107) mmol/L Carbon Dioxide 24 (22-30) mmol/L Anion Gap 10.9 (5-15) MEQ/L BUN 22 H (7-17) mg/dL Creatinine 1.48 H (0.52-1.04) mg/dL Estimated GFR 38.3 ML/MIN Glucose 82 (74-106) mg/dL Calcium 8.4 (8.4-10.2) mg/dL Total Bilirubin 0.40 (0.2-1.3) mg/dL AST 22 (14-36) U/L ALT 21 (0-35) U/L Alkaline Phosphatase 54 (38-126) U/L Serum Total Protein 6.0 L (6.3-8.2) g/dL Albumin 3.7 (3.5-5.0) g/dL Crossmatch COMPATIBLE (COMPATIBLE) Discharge Exam General Appearance: no apparent distress Neurologic Exam: alert, oriented x 3, cooperative Eye Exam: PERRL Ears, Nose, Throat Exam: normal ENT inspection Neck Exam: normal inspection Respiratory Exam: normal breath sounds, lungs clear Cardiovascular Exam: regular rate/rhythm, normal heart sounds Gastrointestinal/Abdomen Exam: soft, normal bowel sounds Pelvic Exam: deferred Rectal Exam: deferred Back Exam: normal inspection Extremity Exam: normal inspection Skin Exam: normal color Final Diagnosis/Problem List - Final Discharge Diagnosis/Problem (1) Symptomatic anemia Current Visit: Yes Status: Acute Assessment & Plan: Profound anemia (initial Hgb 5.2 ? 4.8 ? post-transfusion 8.6) Iron studies confirm iron deficiency (ferritin 4.04, Fe sat 4%, CHr 16.7 pg) No active bleeding on EGD Reticulocyte count low, no evidence of hemolysis or B12/folate deficiency Continue ferrous sulfate orally Follow-up CBC with PCP in one week Outpatient hematology referral for iron infusion (appt scheduled with Dr. Ojeda) Resume Xarelto CBC on Sunday with PCP Code(s): D64.9 - ANEMIA, UNSPECIFIED (2) Paroxysmal A-fib Current Visit: Yes Status: Acute Assessment & Plan: On chronic Xarelto, anticoagulation held inpatient due to anemia No arrhythmia episodes observed during admission Continue home amiodarone 200 mg daily Continue metoprolol 50 mg BID Resume Xarelto Code(s): I48.0 - PAROXYSMAL ATRIAL FIBRILLATION (3) CKD (chronic kidney disease) Current Visit: Yes Status: Acute Assessment & Plan: Stable renal function (Cr 1.401.48), baseline ~1.3 Avoid nephrotoxins Routine outpatient monitoring of renal function and electrolytes Code(s): N18.9 - CHRONIC KIDNEY DISEASE, UNSPECIFIED (4) CHF (congestive heart failure) Current Visit: Yes Status: Acute Assessment & Plan: CHF history unclear; no current signs of volume overload - patient denies h/o Prophylactic Lasix given after transfusion continue home lasix Code(s): I50.9 - HEART FAILURE, UNSPECIFIED (5) HTN (hypertension) Current Visit: Yes Status: Acute Assessment & Plan: BP stable throughout hospitalization Continue Norvasc 5 mg daily Continue metoprolol 50 mg BID Code(s): I10 - ESSENTIAL (PRIMARY) HYPERTENSION (6) GERD (gastroesophageal reflux disease) Current Visit: Yes Status: Acute Assessment & Plan: History of severe reflux; denies GI bleeding or ulcer history Continue Protonix 40 mg BID Continue Carafate as previously prescribed Code(s): K21.9 - GASTRO-ESOPHAGEAL REFLUX DISEASE WITHOUT ESOPHAGITIS - Discharge Discharge Date: 01/15/25 Disposition: Home, Self-Care Condition: Stable Prescriptions: New Ferrous Sulfate 325 mg [Feosol 325 mg] 325 mg PO DAILY 30 Days #30 tablet Continue Metoprolol Tartrate 50 mg [Lopressor 50 MG] 50 mg PO BID Furosemide 20 mg [Lasix 20 mg] 20 mg PO DAILY Sucralfate 1 gm [Carafate 1 GM] 1 g PO DAILY Potassium Chloride 10 meq PO BID PANTOPRAZOLE 40 mg Tablet [Protonix 40MG Tablet] 40 mg PO QAM Amlodipine Besylate 5 mg [Norvasc 5 mg] 5 mg PO DAILY Amiodarone HCl 200 mg PO DAILY Rivaroxaban [Xarelto] 20 mg PO DAILY Additional Instructions: Lab work CBC on Sunday with Dr. Montez Follow up with: DAYLIN OJEDA MD [NON-STAFF PHY W/O PRIVILEGES, HEMATOLOGY] - 01/22/25 2:00 pm Referral Note: iron deficiency Problems: Anemia; JAY MONTEZ MD [Primary Care Provider, [facility]] - 01/22/25 9:20 am
[2025-01-15 17:45] VITALS: BP 135/61; PULSE 57; TEMP 97.9; O2SAT 98
[2025-01-15] MEDS ORDERED: DESYREL 50 MG PO SCH (22:00)
--- NOTE | 2025-01-19 08:47 | OP ---
SURGERY DATE/TIME: 01/15/2025 [id number] PREOPERATIVE DIAGNOSIS: Anemia. POSTOPERATIVE DIAGNOSIS: Small hiatal hernia, no source for anemia identified. PROCEDURE: Esophagogastroduodenoscopy. SURGEON: Robinson Mason M.D. ANESTHESIA: IV. CONDITION: Stable. COMPLICATIONS: None. SPECIMENS: None. INDICATIONS: Patient is a 69-year-old female who presents with profound anemia and just had a normal colonoscopy around 2 years ago, reportedly normal EGD also. Not specifically having any visible GI bleeding, but due to the anemia, discussed with the patient option of proceeding with the EGD to assess for any gastric source or any upper GI source for anemia, and she does want to proceed with that but is not at all interested in repeating a colonoscopy and appropriate transfusions of blood products. FINDINGS: Small 2 cm hiatal hernia without any evidence for GI blood loss. DESCRIPTION OF PROCEDURE AND FINDINGS: Patient brought to the endoscopy suite, routinely positioned and prepared. IV anesthesia induced by Anesthesia. Gastroscope inserted through the mouth, advanced through the third portion of the duodenum. Duodenum is normal in appearance. Stomach normal in appearance, except a 2 cm sliding hiatal hernia, totally healthy in appearance. Esophagus totally normal. There is no evidence for any upper GI source for anemia. The stomach is suctioned out. Scope is withdrawn. Patient tolerated the procedure well and was taken to recovery in stable condition. RECOMMENDATIONS: If the patient does have Hemoccult positivity or GI bleeding, could consider colonoscopy or panendoscopy or bleeding scan or further imaging; but at this point, she is not interested in anything further.
== END 2025-01-15 18:15 | disposition home or self-care (01) ==
LOC: ED 18:08 → MED SURG 20:33
PROVIDERS: ADMIT Internal Medicine; ATTEND Internal Medicine
DX: D64.9 Anemia, unspecified (principal); I48.0 Paroxysmal atrial fibrillation; I13.0 Hypertensive heart and chronic kidney disease with heart failure and stage 1 through stage 4 chronic kidney disease, or unspecified chronic kidney disease; N18.9 Chronic kidney disease, unspecified; K44.9 Diaphragmatic hernia without obstruction or gangrene; I50.9 Heart failure, unspecified; K21.9 Gastro-esophageal reflux disease without esophagitis; Z79.899 Other long term (current) drug therapy; Z79.01 Long term (current) use of anticoagulants; Z80.0 Family history of malignant neoplasm of digestive organs; E78.5 Hyperlipidemia, unspecified
CPT/HCPCS: 36415; 36430; 43235; 80048; 80053; 82607; 82728; 82746; 83010; 83540; 83550; 83615; 83735; 85014; 85018; 85025; 85045; 85046; 86850; 86900; 86901; 86922; 99285; G0378; P9016; Q3014